=== PATIENT | male | born 1965 | race African-American/Black ===

== ENCOUNTER 2020-11-30 10:02 | Inpatient (IN) | payer OTHER ==
[2020-11-30 11:30] VITALS: BMI 20.9
[2020-11-30] MEDS ORDERED: MAG HYDROX/AL HYDROX/SIMETH 30 ML UNIT-DOSE CUP PO PRN (12:43)
[2020-11-30] MEDS ORDERED: IBUPROFEN 400 MG TABLET (FP) PO PRN (12:43)
[2020-11-30] MEDS ORDERED: LOPERAMIDE HCL 2 MG CAPSULE PO PRN (12:43)
[2020-11-30] MEDS ORDERED: P-EPHED 60MG/TRIPROLIDI 2.5MG TABLET PO PRN (12:43)
[2020-11-30] MEDS ORDERED: MAGNESIUM CITRATE 300 ML BOTTLE PO PRN (12:43)
[2020-11-30] MEDS ORDERED: ACETAMINOPHEN 325 MG TABLET (FP) PO PRN (12:43)
[2020-11-30] MEDS ORDERED: guaiFENesin 200 MG/10 ML 10 ML UNIT-DOSE CUPS PO PRN (12:43)
[2020-11-30] MEDS ORDERED: NICOTINE POLACRILEX 2 MG GUM BC PRN (12:43)
[2020-11-30] MEDS ORDERED: MAGNESIUM HYDROX 2400MG/30ML ORAL SUSPENSION 30 ML CUP PO PRN (12:43)
[2020-11-30] MEDS: hydrOXYzine PAMOATE 25 MG CAPSULE (FP) PO SCH ×3 (13:52→21:19)
[2020-11-30] MEDS: PRENATAL VITAMINS W/ FOLIC ACID TABLET (FP) PO SCH (13:52)
[2020-11-30] MEDS: amLODIPine BESYLATE 10 MG TABLET (FP) PO SCH (13:52)
[2020-11-30] MEDS: NICOTINE 7 MG/24 HOURS TOPICAL PATCH TD SCH (13:55)
[2020-11-30] MEDS ORDERED: FLUoxetine HCL 20 MG CAPSULE PO ONE (14:26)
[2020-11-30] MEDS: metFORMIN HCL 500 MG TABLET (FP) PO SCH (17:02)
[2020-11-30 17:17] LABS: HEMATOCRIT 45.2 % (35.4-49); HEMOGLOBIN 15.2 GM/dL (11.7-16.9); MCH 29.6 pg (25.7-33.7); MCHC 33.8 g/dl (32.0-35.9); MEAN CELL VOLUME 87.6 fl (80-96); MEAN PLT VOLUME 8.3 fl (7.5-11.1); PLATELET COUNT 349 K/MM3 (134-434); RBC 5.15 M/mm3 (4.00-5.60); RDW 13.1 % (11.9-15.9); WHITE BLOOD COUNT 7.8 K/mm3 (4.0-10.0)
[2020-11-30 17:27] LABS: ALBUMIN 3.6 g/dl (3.4-5.0); BLOOD UREA NITROGEN 8.1 mg/dL (7-18)
[2020-11-30 17:29] LABS: BILIRUBIN,TOTAL 0.8 mg/dL (0.2-1)
[2020-11-30 17:30] LABS: CREATININE 0.8 mg/dL (0.55-1.3)
[2020-11-30 17:31] LABS: TOT PROT 7.7 g/dl (6.4-8.2)
[2020-11-30] MEDS: THIAMINE HCL 100 MG TABLET (FP) PO SCH (21:17)
[2020-11-30] MEDS: OLANZapine 10 MG TABLET PO SCH (21:18)
[2020-11-30] MEDS ORDERED: MELATONIN 5 MG TABLETS PO SCH (22:00)
[2020-12-01] MEDS: metFORMIN HCL 500 MG TABLET (FP) PO SCH ×2 (07:20→17:38)
[2020-12-01] MEDS: hydrOXYzine PAMOATE 25 MG CAPSULE (FP) PO SCH ×5 (07:20→21:39)
[2020-12-01] MEDS: NICOTINE 7 MG/24 HOURS TOPICAL PATCH TD SCH (10:24)
[2020-12-01] MEDS: FLUoxetine HCL 20 MG CAPSULE PO SCH (10:24)
[2020-12-01] MEDS: amLODIPine BESYLATE 10 MG TABLET (FP) PO SCH (10:24)
[2020-12-01] MEDS: PRENATAL VITAMINS W/ FOLIC ACID TABLET (FP) PO SCH (10:24)
[2020-12-01] MEDS ORDERED: MASKS NR ONE (10:36)
[2020-12-01] MEDS: OLANZapine 10 MG TABLET PO SCH (21:39)
[2020-12-01] MEDS: THIAMINE HCL 100 MG TABLET (FP) PO SCH (21:39)
[2020-12-02] MEDS: metFORMIN HCL 500 MG TABLET (FP) PO SCH ×2 (06:14→17:20)
[2020-12-02] MEDS: hydrOXYzine PAMOATE 25 MG CAPSULE (FP) PO SCH ×3 (06:14→13:17)
[2020-12-02] MEDS: PRENATAL VITAMINS W/ FOLIC ACID TABLET (FP) PO SCH (09:40)
[2020-12-02] MEDS: amLODIPine BESYLATE 10 MG TABLET (FP) PO SCH (09:40)
[2020-12-02] MEDS: NICOTINE 7 MG/24 HOURS TOPICAL PATCH TD SCH (09:40)
[2020-12-02] MEDS: FLUoxetine HCL 20 MG CAPSULE PO SCH (09:40)
[2020-12-02] MEDS: hydrOXYzine PAMOATE 25 MG CAPSULE (FP) PO PRN (17:43)
[2020-12-02] MEDS: THIAMINE HCL 100 MG TABLET (FP) PO SCH (21:51)
[2020-12-02] MEDS: OLANZapine 10 MG TABLET PO SCH (21:51)
[2020-12-02] MEDS: SUVOREXANT 10 MG TABLET PO PRN (21:52)
[2020-12-03] MEDS: metFORMIN HCL 500 MG TABLET (FP) PO SCH ×2 (07:32→16:58)
[2020-12-03] MEDS: NICOTINE 7 MG/24 HOURS TOPICAL PATCH TD SCH (09:49)
[2020-12-03] MEDS: PRENATAL VITAMINS W/ FOLIC ACID TABLET (FP) PO SCH (09:49)
[2020-12-03] MEDS: amLODIPine BESYLATE 10 MG TABLET (FP) PO SCH (09:49)
[2020-12-03] MEDS: FLUoxetine HCL 20 MG CAPSULE PO SCH (09:50)
[2020-12-03 10:19] LABS: EPI CELLS 34 /uL (0-25.1); HYALINE CASTS 0 /uL (0-3.1); PH,URINE 8.5 (5.0-8.0); URINE APPEARANCE CLEAR; URINE BACTERIA 413 /uL (0-1359); URINE BILIRUBIN NEGATIVE (NEGATIVE); URINE COLOR YELLOW; URINE GLUCOSE (UA) NEGATIVE (NEGATIVE); URINE KETONE NEGATIVE (NEGATIVE); URINE LEUK ESTERASE 1+ (NEGATIVE); URINE NITRITE NEGATIVE (NEGATIVE); URINE PROTEIN NEGATIVE (NEGATIVE); URINE RBC 4 /uL (0-23.9); URINE UROBILINOGEN 0.2 mg/dL (0.2-1.0); URINE WBC 64 /uL (0-25.8)
[2020-12-03] MEDS: hydrOXYzine PAMOATE 25 MG CAPSULE (FP) PO PRN (17:53)
[2020-12-03] MEDS: THIAMINE HCL 100 MG TABLET (FP) PO SCH (21:14)
[2020-12-03] MEDS: OLANZapine 10 MG TABLET PO SCH (21:15)
[2020-12-03] MEDS: SUVOREXANT 10 MG TABLET PO PRN (21:16)
[2020-12-04 06:06] LABS: SARS-CoV-2 NAA Not Detected (Not Detected)
[2020-12-04] MEDS: metFORMIN HCL 500 MG TABLET (FP) PO SCH (06:35)
[2020-12-04 06:47] VITALS: TEMP 97.1
[2020-12-04] MEDS: amLODIPine BESYLATE 10 MG TABLET (FP) PO SCH (09:09)
[2020-12-04] MEDS: NICOTINE 7 MG/24 HOURS TOPICAL PATCH TD SCH (09:09)
[2020-12-04] MEDS: PRENATAL VITAMINS W/ FOLIC ACID TABLET (FP) PO SCH (09:09)
[2020-12-04] MEDS: FLUoxetine HCL 20 MG CAPSULE PO SCH (09:10)
[2020-12-04 09:37] VITALS: BP 131/88; PULSE 107
== END 2020-12-04 12:32 | disposition home or self-care (01) | DRG 772 ==
LOC: YASAS 10:02 → Y3E 12:28
PROVIDERS: ADMIT Allergy & Immunology; ATTEND Allergy & Immunology
PROC: HZ42ZZZ Group Counseling for Substance Abuse Treatment, Cognitive-Behavioral (ICD-10-PCS; principal; 2020-11-30)
DX: F14.20 Cocaine dependence, uncomplicated (principal); F16.20 Hallucinogen dependence, uncomplicated; F17.210 Nicotine dependence, cigarettes, uncomplicated; F31.9 Bipolar disorder, unspecified; F25.9 Schizoaffective disorder, unspecified; F19.282 Other psychoactive substance dependence with psychoactive substance-induced sleep disorder; I10 Essential (primary) hypertension; E11.9 Type 2 diabetes mellitus without complications; Z79.84 Long term (current) use of oral hypoglycemic drugs; M16.12 Unilateral primary osteoarthritis, left hip; Z96.641 Presence of right artificial hip joint; Z99.89 Dependence on other enabling machines and devices
CPT/HCPCS: 36415; 80053; 81003; 82962; 85027; 86780; C9803; U0003; U0005

== ENCOUNTER 2021-11-05 13:10 | Inpatient (IN) | payer OTHER ==
[2021-11-05] MEDS ORDERED: ONDANSETRON *ODT* 4 MG TABLET SL PRN (15:46)
[2021-11-05] MEDS ORDERED: MAG HYDROX/AL HYDROX/SIMETH 30 ML UNIT-DOSE CUP PO PRN (15:46)
[2021-11-05] MEDS ORDERED: NICOTINE 10 MG CARTRIDGE (INHALER) IH PRN (15:46)
[2021-11-05] MEDS ORDERED: LOPERAMIDE HCL 2 MG CAPSULE PO PRN (15:46)
[2021-11-05] MEDS ORDERED: IBUPROFEN 400 MG TABLET (FP) PO PRN (15:46)
[2021-11-05] MEDS ORDERED: BISMUTH SUBSALICYLATE 524 MG/30 ML PO PRN (15:46)
[2021-11-05] MEDS ORDERED: ACETAMINOPHEN 325 MG TABLET (FP) PO PRN ×2 (15:46)
[2021-11-05] MEDS ORDERED: DICYCLOMINE HCL 10 MG CAPSULE PO PRN (15:46)
[2021-11-05] MEDS ORDERED: METHOCARBAMOL 500 MG TABLET PO PRN (15:46)
[2021-11-05] MEDS ORDERED: MAGNESIUM HYDROX 2400MG/30ML ORAL SUSPENSION 30 ML CUP PO PRN (15:46)
[2021-11-05] MEDS ORDERED: MENTHOL/PHENOL 1 EACH UD MM PRN (15:46)
[2021-11-05] MEDS ORDERED: MAGNESIUM CITRATE 300 ML BOTTLE PO PRN (15:46)
[2021-11-05 17:26] VITALS: BMI 21.1
[2021-11-05] MEDS: PRENATAL VITAMINS W/ FOLIC ACID TABLET (FP) PO SCH (18:49)
[2021-11-05] MEDS: hydrOXYzine PAMOATE 25 MG CAPSULE (FP) PO SCH ×2 (18:49→23:04)
[2021-11-05] MEDS: THIAMINE HCL 100 MG TABLET (FP) PO SCH (23:04)
[2021-11-05] MEDS: MELATONIN 5 MG TABLETS PO SCH (23:04)
[2021-11-06] MEDS: hydrOXYzine PAMOATE 25 MG CAPSULE (FP) PO SCH ×5 (05:22→22:25)
[2021-11-06] MEDS: PRENATAL VITAMINS W/ FOLIC ACID TABLET (FP) PO SCH (10:56)
[2021-11-06] MEDS ORDERED: OLANZapine 5 MG TABLET PO SCH (22:00)
[2021-11-06] MEDS: MELATONIN 5 MG TABLETS PO SCH (22:24)
[2021-11-06] MEDS: THIAMINE HCL 100 MG TABLET (FP) PO SCH (22:25)
[2021-11-07] MEDS: hydrOXYzine PAMOATE 25 MG CAPSULE (FP) PO SCH ×2 (06:05→10:14)
[2021-11-07 09:53] VITALS: BP 144/96; PULSE 93; TEMP 98.1
[2021-11-07] MEDS ORDERED: FLUoxetine HCL 20 MG CAPSULE PO SCH (10:00)
[2021-11-07] MEDS: PRENATAL VITAMINS W/ FOLIC ACID TABLET (FP) PO SCH (10:14)
[2021-11-08 00:06] LABS: SARS-CoV-2 NAA Not Detected (Not Detected)
== END 2021-11-07 11:34 | DRG 774 ==
LOC: YASAS 13:10 → Y6N 17:17 → UNDOADMIN 17:17 → UNDODISIN 11-07 11:34
PROVIDERS: ADMIT Allergy & Immunology; ATTEND Allergy & Immunology
PROC: HZ2ZZZZ Detoxification Services for Substance Abuse Treatment (ICD-10-PCS; principal; 2021-11-05)
DX: F10.230 Alcohol dependence with withdrawal, uncomplicated (principal); F14.20 Cocaine dependence, uncomplicated; F16.20 Hallucinogen dependence, uncomplicated; F17.213 Nicotine dependence, cigarettes, with withdrawal; F25.9 Schizoaffective disorder, unspecified; F19.282 Other psychoactive substance dependence with psychoactive substance-induced sleep disorder; I10 Essential (primary) hypertension; E11.9 Type 2 diabetes mellitus without complications; Z79.84 Long term (current) use of oral hypoglycemic drugs; Z96.643 Presence of artificial hip joint, bilateral; Z99.89 Dependence on other enabling machines and devices
CPT/HCPCS: 82962; C9803-CS; U0003; U0005

== ENCOUNTER 2021-11-07 08:50 | Inpatient (IN) | payer OTHER ==
[2021-11-07] MEDS ORDERED: LOPERAMIDE HCL 2 MG CAPSULE PO PRN (11:31)
[2021-11-07] MEDS ORDERED: MAGNESIUM CITRATE 300 ML BOTTLE PO PRN (11:31)
[2021-11-07] MEDS ORDERED: NICOTINE 10 MG CARTRIDGE (INHALER) IH PRN (11:31)
[2021-11-07] MEDS ORDERED: P-EPHED 60MG/TRIPROLIDI 2.5MG TABLET PO PRN (11:31)
[2021-11-07] MEDS ORDERED: MAGNESIUM HYDROX 2400MG/30ML ORAL SUSPENSION 30 ML CUP PO PRN (11:31)
[2021-11-07] MEDS ORDERED: NICOTINE POLACRILEX 2 MG GUM BUC PRN (11:31)
[2021-11-07] MEDS ORDERED: MAG HYDROX/AL HYDROX/SIMETH 30 ML UNIT-DOSE CUP PO PRN (11:31)
[2021-11-07] MEDS ORDERED: guaiFENesin 200 MG/10 ML 10 ML UNIT-DOSE CUPS PO PRN (11:31)
[2021-11-07] MEDS ORDERED: amLODIPine BESYLATE 10 MG TABLET (FP) PO SCH (12:12)
[2021-11-07] MEDS: amLODIPine BESYLATE 10 MG TABLET (FP) PO SCH (12:42)
[2021-11-07] MEDS ORDERED: metFORMIN HCL 500 MG TABLET (FP) PO SCH (16:30)
[2021-11-07] MEDS: OLANZapine 10 MG TABLET PO SCH (22:37)
[2021-11-07] MEDS: MELATONIN 5 MG TABLETS PO SCH (22:37)
[2021-11-07] MEDS: THIAMINE HCL 100 MG TABLET (FP) PO SCH (22:37)
[2021-11-08] MEDS ORDERED: amLODIPine BESYLATE 10 MG TABLET (FP) PO SCH (10:00)
[2021-11-08] MEDS: FLUoxetine HCL 20 MG CAPSULE PO SCH (11:01)
[2021-11-08] MEDS: amLODIPine BESYLATE 10 MG TABLET (FP) PO SCH (11:01)
[2021-11-08] MEDS: PRENATAL VITAMINS W/ FOLIC ACID TABLET (FP) PO SCH (11:02)
[2021-11-08 14:37] LABS: HEMOGLOBIN 13.9 GM/dL (11.7-16.9); MCH 29.5 pg (25.7-33.7); MCHC 33.9 g/dl (32.0-35.9); MEAN CELL VOLUME 87.1 fl (80-96); MEAN PLT VOLUME 7.5 fl (7.5-11.1); PLATELET COUNT 277 10^3/uL (134-434); WHITE BLOOD COUNT 4.1 K/mm3 (4.0-10.0)
[2021-11-08 15:01] LABS: ALBUMIN 3.5 g/dl (3.4-5.0); BLOOD UREA NITROGEN 9.1 mg/dL (7-18); CALCIUM 9.2 mg/dL (8.5-10.1)
[2021-11-08 15:05] LABS: BILIRUBIN,TOTAL 0.8 mg/dL (0.2-1); CREATININE 0.9 mg/dL (0.55-1.3)
[2021-11-08 15:06] LABS: TOT PROT 6.8 g/dl (6.4-8.2)
[2021-11-08 15:20] LABS: SYPHILIS W/ RPR CONF NON-REACTIVE (NONREACTIVE)
[2021-11-08 15:49] LABS: HIV INTERPRETATION NEGATIVE (NEGATIVE)
[2021-11-08] MEDS: OLANZapine 10 MG TABLET PO SCH (21:13)
[2021-11-08] MEDS: THIAMINE HCL 100 MG TABLET (FP) PO SCH (21:13)
[2021-11-08] MEDS: MELATONIN 5 MG TABLETS PO SCH (21:13)
[2021-11-09] MEDS: PRENATAL VITAMINS W/ FOLIC ACID TABLET (FP) PO SCH (10:27)
[2021-11-09] MEDS: FLUoxetine HCL 20 MG CAPSULE PO SCH (10:27)
[2021-11-09] MEDS: amLODIPine BESYLATE 10 MG TABLET (FP) PO SCH (10:27)
[2021-11-09] MEDS: MELATONIN 5 MG TABLETS PO SCH (23:23)
[2021-11-09] MEDS: OLANZapine 10 MG TABLET PO SCH (23:23)
[2021-11-09] MEDS: THIAMINE HCL 100 MG TABLET (FP) PO SCH (23:23)
[2021-11-10] MEDS: PRENATAL VITAMINS W/ FOLIC ACID TABLET (FP) PO SCH (10:10)
[2021-11-10] MEDS: amLODIPine BESYLATE 10 MG TABLET (FP) PO SCH (10:10)
[2021-11-10] MEDS: FLUoxetine HCL 20 MG CAPSULE PO SCH (10:10)
[2021-11-10] MEDS: COLLOIDAL OATMEAL 1 BAR EACH TP PRN (11:50)
[2021-11-10] MEDS: IBUPROFEN 400 MG TABLET (FP) PO PRN (18:11)
[2021-11-10] MEDS: THIAMINE HCL 100 MG TABLET (FP) PO SCH (21:04)
[2021-11-10] MEDS: OLANZapine 10 MG TABLET PO SCH (21:04)
[2021-11-10] MEDS: MELATONIN 5 MG TABLETS PO SCH (21:04)
[2021-11-11 00:09] LABS: SARS-CoV-2 NAA Not Detected (Not Detected)
[2021-11-11] MEDS: FLUoxetine HCL 20 MG CAPSULE PO SCH (10:01)
[2021-11-11] MEDS: amLODIPine BESYLATE 10 MG TABLET (FP) PO SCH (10:01)
[2021-11-11] MEDS: hydrOXYzine PAMOATE 25 MG CAPSULE (FP) PO PRN (10:01)
[2021-11-11] MEDS: PRENATAL VITAMINS W/ FOLIC ACID TABLET (FP) PO SCH (10:02)
[2021-11-11] MEDS: MELATONIN 5 MG TABLETS PO SCH (21:18)
[2021-11-11] MEDS: OLANZapine 10 MG TABLET PO SCH (21:18)
[2021-11-11] MEDS: THIAMINE HCL 100 MG TABLET (FP) PO SCH (21:18)
[2021-11-12] MEDS: amLODIPine BESYLATE 10 MG TABLET (FP) PO SCH (10:45)
[2021-11-12] MEDS: FLUoxetine HCL 20 MG CAPSULE PO SCH (10:45)
[2021-11-12] MEDS: PRENATAL VITAMINS W/ FOLIC ACID TABLET (FP) PO SCH (10:45)
[2021-11-12] MEDS: THIAMINE HCL 100 MG TABLET (FP) PO SCH (21:09)
[2021-11-12] MEDS: OLANZapine 10 MG TABLET PO SCH (21:09)
[2021-11-12] MEDS: MELATONIN 5 MG TABLETS PO SCH (21:09)
[2021-11-12] MEDS: ACETAMINOPHEN 325 MG TABLET (FP) PO PRN (21:17)
[2021-11-13] MEDS: amLODIPine BESYLATE 10 MG TABLET (FP) PO SCH (10:15)
[2021-11-13] MEDS: FLUoxetine HCL 20 MG CAPSULE PO SCH (10:15)
[2021-11-13] MEDS: PRENATAL VITAMINS W/ FOLIC ACID TABLET (FP) PO SCH (10:16)
[2021-11-13] MEDS: THIAMINE HCL 100 MG TABLET (FP) PO SCH (21:45)
[2021-11-13] MEDS: MELATONIN 5 MG TABLETS PO SCH (21:47)
[2021-11-13] MEDS: OLANZapine 10 MG TABLET PO SCH (21:47)
[2021-11-13] MEDS: ACETAMINOPHEN 325 MG TABLET (FP) PO PRN (21:48)
[2021-11-14] MEDS: amLODIPine BESYLATE 10 MG TABLET (FP) PO SCH (09:54)
[2021-11-14] MEDS: PRENATAL VITAMINS W/ FOLIC ACID TABLET (FP) PO SCH (09:54)
[2021-11-14] MEDS: FLUoxetine HCL 20 MG CAPSULE PO SCH (09:54)
[2021-11-14] MEDS: hydrOXYzine PAMOATE 25 MG CAPSULE (FP) PO PRN (09:55)
[2021-11-14] MEDS: THIAMINE HCL 100 MG TABLET (FP) PO SCH (21:10)
[2021-11-14] MEDS: MELATONIN 5 MG TABLETS PO SCH (21:10)
[2021-11-14] MEDS: OLANZapine 10 MG TABLET PO SCH (21:10)
[2021-11-15] MEDS: amLODIPine BESYLATE 10 MG TABLET (FP) PO SCH (12:20)
[2021-11-15] MEDS: PRENATAL VITAMINS W/ FOLIC ACID TABLET (FP) PO SCH (12:20)
[2021-11-15] MEDS: FLUoxetine HCL 20 MG CAPSULE PO SCH (12:20)
[2021-11-15] MEDS: MELATONIN 5 MG TABLETS PO SCH (21:12)
[2021-11-15] MEDS: THIAMINE HCL 100 MG TABLET (FP) PO SCH (21:12)
[2021-11-15] MEDS: OLANZapine 10 MG TABLET PO SCH (21:13)
[2021-11-16] MEDS: PRENATAL VITAMINS W/ FOLIC ACID TABLET (FP) PO SCH (10:12)
[2021-11-16] MEDS: FLUoxetine HCL 20 MG CAPSULE PO SCH (10:12)
[2021-11-16] MEDS: amLODIPine BESYLATE 10 MG TABLET (FP) PO SCH (10:12)
[2021-11-16] MEDS: OLANZapine 10 MG TABLET PO SCH (21:21)
[2021-11-16] MEDS: THIAMINE HCL 100 MG TABLET (FP) PO SCH (21:21)
[2021-11-16] MEDS: MELATONIN 5 MG TABLETS PO SCH (21:21)
[2021-11-17] MEDS: PRENATAL VITAMINS W/ FOLIC ACID TABLET (FP) PO SCH (09:58)
[2021-11-17] MEDS: amLODIPine BESYLATE 10 MG TABLET (FP) PO SCH (09:58)
[2021-11-17] MEDS: FLUoxetine HCL 20 MG CAPSULE PO SCH (09:58)
[2021-11-17] MEDS: OLANZapine 10 MG TABLET PO SCH (21:09)
[2021-11-17] MEDS: THIAMINE HCL 100 MG TABLET (FP) PO SCH (21:09)
[2021-11-17] MEDS: MELATONIN 5 MG TABLETS PO SCH (21:09)
[2021-11-18] MEDS: amLODIPine BESYLATE 10 MG TABLET (FP) PO SCH (10:23)
[2021-11-18] MEDS: FLUoxetine HCL 20 MG CAPSULE PO SCH (10:23)
[2021-11-18] MEDS: PRENATAL VITAMINS W/ FOLIC ACID TABLET (FP) PO SCH (10:23)
[2021-11-18] MEDS: OLANZapine 10 MG TABLET PO SCH (21:32)
[2021-11-18] MEDS: THIAMINE HCL 100 MG TABLET (FP) PO SCH (21:32)
[2021-11-18] MEDS: MELATONIN 5 MG TABLETS PO SCH (21:32)
[2021-11-19] MEDS: PRENATAL VITAMINS W/ FOLIC ACID TABLET (FP) PO SCH (09:42)
[2021-11-19] MEDS: FLUoxetine HCL 20 MG CAPSULE PO SCH (09:43)
[2021-11-19] MEDS: amLODIPine BESYLATE 10 MG TABLET (FP) PO SCH (09:43)
[2021-11-19] MEDS: OLANZapine 10 MG TABLET PO SCH (21:06)
[2021-11-19] MEDS: MELATONIN 5 MG TABLETS PO SCH (21:06)
[2021-11-19] MEDS: THIAMINE HCL 100 MG TABLET (FP) PO SCH (21:06)
[2021-11-19] MEDS: IBUPROFEN 400 MG TABLET (FP) PO PRN (21:08)
[2021-11-20] MEDS: FLUoxetine HCL 20 MG CAPSULE PO SCH (10:40)
[2021-11-20] MEDS: PRENATAL VITAMINS W/ FOLIC ACID TABLET (FP) PO SCH (10:40)
[2021-11-20] MEDS: amLODIPine BESYLATE 10 MG TABLET (FP) PO SCH (10:41)
[2021-11-20] MEDS: COLLOIDAL OATMEAL 1 BAR EACH TP PRN (18:29)
[2021-11-20] MEDS: MELATONIN 5 MG TABLETS PO SCH (21:27)
[2021-11-20] MEDS: OLANZapine 10 MG TABLET PO SCH (21:28)
[2021-11-20] MEDS: THIAMINE HCL 100 MG TABLET (FP) PO SCH (21:28)
[2021-11-21] MEDS: FLUoxetine HCL 20 MG CAPSULE PO SCH (09:31)
[2021-11-21] MEDS: PRENATAL VITAMINS W/ FOLIC ACID TABLET (FP) PO SCH (09:31)
[2021-11-21] MEDS: amLODIPine BESYLATE 10 MG TABLET (FP) PO SCH (09:32)
[2021-11-21] MEDS: OLANZapine 10 MG TABLET PO SCH (21:06)
[2021-11-21] MEDS: THIAMINE HCL 100 MG TABLET (FP) PO SCH (21:06)
[2021-11-21] MEDS: MELATONIN 5 MG TABLETS PO SCH (21:06)
[2021-11-21] MEDS: IBUPROFEN 400 MG TABLET (FP) PO PRN (21:07)
[2021-11-22] MEDS: FLUoxetine HCL 20 MG CAPSULE PO SCH (10:36)
[2021-11-22] MEDS: amLODIPine BESYLATE 10 MG TABLET (FP) PO SCH (10:36)
[2021-11-22] MEDS: PRENATAL VITAMINS W/ FOLIC ACID TABLET (FP) PO SCH (10:37)
[2021-11-22] MEDS: IBUPROFEN 400 MG TABLET (FP) PO PRN (18:40)
[2021-11-22] MEDS: OLANZapine 10 MG TABLET PO SCH (21:17)
[2021-11-22] MEDS: MELATONIN 5 MG TABLETS PO SCH (21:17)
[2021-11-22] MEDS: THIAMINE HCL 100 MG TABLET (FP) PO SCH (21:17)
[2021-11-23] MEDS: ACETAMINOPHEN 325 MG TABLET (FP) PO PRN (08:53)
[2021-11-23] MEDS: hydrOXYzine PAMOATE 25 MG CAPSULE (FP) PO PRN ×2 (08:54→09:12)
[2021-11-23] MEDS: PRENATAL VITAMINS W/ FOLIC ACID TABLET (FP) PO SCH (09:12)
[2021-11-23] MEDS: FLUoxetine HCL 20 MG CAPSULE PO SCH (09:12)
[2021-11-23] MEDS: amLODIPine BESYLATE 10 MG TABLET (FP) PO SCH (09:12)
[2021-11-23] MEDS: IBUPROFEN 400 MG TABLET (FP) PO PRN (18:41)
[2021-11-23] MEDS: OLANZapine 10 MG TABLET PO SCH (21:36)
[2021-11-23] MEDS: THIAMINE HCL 100 MG TABLET (FP) PO SCH (21:36)
[2021-11-23] MEDS: MELATONIN 5 MG TABLETS PO SCH (21:36)
[2021-11-24] MEDS: IBUPROFEN 400 MG TABLET (FP) PO PRN (07:32)
[2021-11-24] MEDS: PRENATAL VITAMINS W/ FOLIC ACID TABLET (FP) PO SCH (10:27)
[2021-11-24] MEDS: amLODIPine BESYLATE 10 MG TABLET (FP) PO SCH (10:27)
[2021-11-24] MEDS: FLUoxetine HCL 20 MG CAPSULE PO SCH (10:27)
[2021-11-24] MEDS: THIAMINE HCL 100 MG TABLET (FP) PO SCH (21:10)
[2021-11-24] MEDS: OLANZapine 10 MG TABLET PO SCH (21:10)
[2021-11-24] MEDS: MELATONIN 5 MG TABLETS PO SCH (21:10)
[2021-11-24] MEDS: hydrOXYzine PAMOATE 25 MG CAPSULE (FP) PO PRN (21:50)
[2021-11-25] MEDS: IBUPROFEN 400 MG TABLET (FP) PO PRN ×2 (08:47→21:33)
[2021-11-25] MEDS: FLUoxetine HCL 20 MG CAPSULE PO SCH (09:50)
[2021-11-25] MEDS: PRENATAL VITAMINS W/ FOLIC ACID TABLET (FP) PO SCH (09:50)
[2021-11-25] MEDS: amLODIPine BESYLATE 10 MG TABLET (FP) PO SCH (09:50)
[2021-11-25] MEDS: OLANZapine 10 MG TABLET PO SCH (21:32)
[2021-11-25] MEDS: MELATONIN 5 MG TABLETS PO SCH (21:33)
[2021-11-25] MEDS: THIAMINE HCL 100 MG TABLET (FP) PO SCH (21:33)
[2021-11-25] MEDS: hydrOXYzine PAMOATE 25 MG CAPSULE (FP) PO PRN (21:33)
[2021-11-26] MEDS: amLODIPine BESYLATE 10 MG TABLET (FP) PO SCH (09:01)
[2021-11-26] MEDS: PRENATAL VITAMINS W/ FOLIC ACID TABLET (FP) PO SCH (09:01)
[2021-11-26] MEDS: FLUoxetine HCL 20 MG CAPSULE PO SCH (09:01)
[2021-11-26] MEDS: IBUPROFEN 400 MG TABLET (FP) PO PRN (09:03)
[2021-11-26] MEDS: MELATONIN 5 MG TABLETS PO SCH (21:50)
[2021-11-26] MEDS: OLANZapine 10 MG TABLET PO SCH (21:51)
[2021-11-26] MEDS: THIAMINE HCL 100 MG TABLET (FP) PO SCH (21:51)
[2021-11-27] MEDS: PRENATAL VITAMINS W/ FOLIC ACID TABLET (FP) PO SCH (10:32)
[2021-11-27] MEDS: FLUoxetine HCL 20 MG CAPSULE PO SCH (10:32)
[2021-11-27] MEDS: amLODIPine BESYLATE 10 MG TABLET (FP) PO SCH (10:32)
[2021-11-27] MEDS: THIAMINE HCL 100 MG TABLET (FP) PO SCH (21:11)
[2021-11-27] MEDS: hydrOXYzine PAMOATE 25 MG CAPSULE (FP) PO PRN (21:11)
[2021-11-27] MEDS: MELATONIN 5 MG TABLETS PO SCH (21:11)
[2021-11-27] MEDS: OLANZapine 10 MG TABLET PO SCH (21:12)
[2021-11-28] MEDS: amLODIPine BESYLATE 10 MG TABLET (FP) PO SCH (10:15)
[2021-11-28] MEDS: PRENATAL VITAMINS W/ FOLIC ACID TABLET (FP) PO SCH (10:15)
[2021-11-28] MEDS: FLUoxetine HCL 20 MG CAPSULE PO SCH (10:15)
[2021-11-28] MEDS: OLANZapine 10 MG TABLET PO SCH (21:23)
[2021-11-28] MEDS: MELATONIN 5 MG TABLETS PO SCH (21:24)
[2021-11-28] MEDS: ACETAMINOPHEN 325 MG TABLET (FP) PO PRN (21:24)
[2021-11-28] MEDS: THIAMINE HCL 100 MG TABLET (FP) PO SCH (21:24)
[2021-11-29] MEDS: FLUoxetine HCL 20 MG CAPSULE PO SCH (10:35)
[2021-11-29] MEDS: PRENATAL VITAMINS W/ FOLIC ACID TABLET (FP) PO SCH (10:35)
[2021-11-29] MEDS: amLODIPine BESYLATE 10 MG TABLET (FP) PO SCH (10:35)
[2021-11-29] MEDS: MELATONIN 5 MG TABLETS PO SCH (21:09)
[2021-11-29] MEDS: OLANZapine 10 MG TABLET PO SCH (21:09)
[2021-11-29] MEDS: IBUPROFEN 400 MG TABLET (FP) PO PRN (21:09)
[2021-11-29] MEDS: THIAMINE HCL 100 MG TABLET (FP) PO SCH (21:09)
[2021-11-29] MEDS: hydrOXYzine PAMOATE 25 MG CAPSULE (FP) PO PRN (21:09)
[2021-11-30] MEDS: PRENATAL VITAMINS W/ FOLIC ACID TABLET (FP) PO SCH (10:23)
[2021-11-30] MEDS: amLODIPine BESYLATE 10 MG TABLET (FP) PO SCH (10:23)
[2021-11-30] MEDS: FLUoxetine HCL 20 MG CAPSULE PO SCH (10:23)
[2021-11-30] MEDS: MELATONIN 5 MG TABLETS PO SCH (21:24)
[2021-11-30] MEDS: THIAMINE HCL 100 MG TABLET (FP) PO SCH (21:24)
[2021-11-30] MEDS: OLANZapine 10 MG TABLET PO SCH (21:24)
[2021-11-30] MEDS: IBUPROFEN 400 MG TABLET (FP) PO PRN (21:24)
[2021-12-01] MEDS: amLODIPine BESYLATE 10 MG TABLET (FP) PO SCH (10:51)
[2021-12-01] MEDS: PRENATAL VITAMINS W/ FOLIC ACID TABLET (FP) PO SCH (10:51)
[2021-12-01] MEDS: FLUoxetine HCL 20 MG CAPSULE PO SCH (10:51)
[2021-12-01] MEDS: THIAMINE HCL 100 MG TABLET (FP) PO SCH (23:07)
[2021-12-01] MEDS: MELATONIN 5 MG TABLETS PO SCH (23:07)
[2021-12-01] MEDS: OLANZapine 10 MG TABLET PO SCH (23:07)
[2021-12-02] MEDS: FLUoxetine HCL 20 MG CAPSULE PO SCH (10:05)
[2021-12-02] MEDS: amLODIPine BESYLATE 10 MG TABLET (FP) PO SCH (10:05)
[2021-12-02] MEDS: PRENATAL VITAMINS W/ FOLIC ACID TABLET (FP) PO SCH (10:05)
[2021-12-02] MEDS: MELATONIN 5 MG TABLETS PO SCH (21:40)
[2021-12-02] MEDS: THIAMINE HCL 100 MG TABLET (FP) PO SCH (21:40)
[2021-12-02] MEDS: hydrOXYzine PAMOATE 25 MG CAPSULE (FP) PO PRN (21:40)
[2021-12-02] MEDS: IBUPROFEN 400 MG TABLET (FP) PO PRN (21:41)
[2021-12-02] MEDS: OLANZapine 10 MG TABLET PO SCH (21:42)
[2021-12-03] MEDS: COLLOIDAL OATMEAL 1 BAR EACH TP PRN (07:42)
[2021-12-03] MEDS: amLODIPine BESYLATE 10 MG TABLET (FP) PO SCH (09:04)
[2021-12-03] MEDS: FLUoxetine HCL 20 MG CAPSULE PO SCH (09:04)
[2021-12-03] MEDS: PRENATAL VITAMINS W/ FOLIC ACID TABLET (FP) PO SCH (09:04)
[2021-12-03] MEDS: IBUPROFEN 400 MG TABLET (FP) PO PRN (09:05)
[2021-12-03 09:35] VITALS: BP 135/70; PULSE 89; TEMP 96.5
== END 2021-12-03 10:36 | disposition home or self-care (01) | DRG 772 ==
LOC: YASAS 08:50 → Y3W 08:51
PROVIDERS: ADMIT Allergy & Immunology; ATTEND Allergy & Immunology
PROC: HZ42ZZZ Group Counseling for Substance Abuse Treatment, Cognitive-Behavioral (ICD-10-PCS; principal; 2021-11-07)
DX: F10.20 Alcohol dependence, uncomplicated (principal); F14.20 Cocaine dependence, uncomplicated; I10 Essential (primary) hypertension; E11.9 Type 2 diabetes mellitus without complications; R26.89 Other abnormalities of gait and mobility; Z96.643 Presence of artificial hip joint, bilateral; M25.462 Effusion, left knee; S82.092A Other fracture of left patella, initial encounter for closed fracture; W22.8XXA Striking against or struck by other objects, initial encounter; Y93.E1 Activity, personal bathing and showering; Y92.231 Patient bathroom in hospital as the place of occurrence of the external cause; Z99.89 Dependence on other enabling machines and devices
CPT/HCPCS: 36415; 73562-TC-LT-FY; 80053; 82962; 85027; 86780; 87389; C9803-CS; U0003; U0005

== ENCOUNTER 2021-11-22 11:46 | Emergency (ER) | payer OTHER ==
[2021-11-22 12:08] VITALS: BP 142/84; PULSE 80; TEMP 98.2; BMI 24.4
== END 2021-11-22 17:30 | disposition home or self-care (01) ==
LOC: JERFT 11:46
DX: S82.002A Unspecified fracture of left patella, initial encounter for closed fracture (principal); W18.2XXA Fall in (into) shower or empty bathtub, initial encounter
CPT/HCPCS: 73562-TC-LT-FY; 73562-TC-RT-FY; 99284-25

== ENCOUNTER 2022-03-16 16:07 | Inpatient (IN) | payer OTHER ==
[2022-03-16 17:38] VITALS: BMI 25.0
[2022-03-16] MEDS ORDERED: MAGNESIUM CITRATE 300 ML BOTTLE PO PRN (19:05)
[2022-03-16] MEDS ORDERED: MAG HYDROX/AL HYDROX/SIMETH 30 ML UNIT-DOSE CUP PO PRN (19:05)
[2022-03-16] MEDS ORDERED: MAGNESIUM HYDROX 2400MG/30ML ORAL SUSPENSION 30 ML CUP PO PRN (19:05)
[2022-03-16] MEDS ORDERED: LOPERAMIDE HCL 2 MG CAPSULE PO PRN (19:05)
[2022-03-16] MEDS ORDERED: DICYCLOMINE HCL 10 MG CAPSULE PO PRN (19:05)
[2022-03-16] MEDS ORDERED: BENZOCAINE/MENTHOL (CHLORASEPTIC ) LOZENGE MM PRN (19:05)
[2022-03-16] MEDS ORDERED: ONDANSETRON *ODT* 4 MG TABLET SL PRN (19:05)
[2022-03-16] MEDS ORDERED: BISMUTH SUBSALICYLATE 524 MG/30 ML PO PRN (19:05)
[2022-03-16] MEDS ORDERED: ACETAMINOPHEN 325 MG TABLET (FP) PO PRN ×2 (19:05)
[2022-03-16] MEDS ORDERED: NICOTINE 10 MG CARTRIDGE (INHALER) IH PRN (19:05)
[2022-03-16] MEDS ORDERED: IBUPROFEN 400 MG TABLET (FP) PO PRN (19:05)
[2022-03-16] MEDS: MELATONIN 5 MG TABLETS PO SCH (23:46)
[2022-03-16] MEDS: LIDOCAINE 5% TOPICAL PATCH TP SCH (23:46)
[2022-03-16] MEDS: LIDOCAINE PATCH REMOVAL MC SCH (23:46)
[2022-03-16] MEDS: THIAMINE HCL 100 MG TABLET (FP) PO SCH (23:47)
[2022-03-17] MEDS: IBUPROFEN 600 MG TABLET (FP) PO PRN (08:53)
[2022-03-17] MEDS ORDERED: chlordiazePOXIDE HCL 25 MG CAPSULE PO PRN (09:46)
[2022-03-17] MEDS: LIDOCAINE 5% TOPICAL PATCH TP SCH (10:10)
[2022-03-17] MEDS: PRENATAL VITAMINS W/ FOLIC ACID TABLET (FP) PO SCH (10:10)
[2022-03-17] MEDS: METHOCARBAMOL 500 MG TABLET PO PRN (10:10)
[2022-03-17] MEDS: amLODIPine BESYLATE 10 MG TABLET (FP) PO SCH (10:12)
[2022-03-17] MEDS: chlordiazePOXIDE HCL 25 MG CAPSULE PO SCH ×3 (10:12→22:23)
[2022-03-17 11:59] LABS: HEMOGLOBIN 13.6 GM/dL (11.7-16.9); MCH 28.6 pg (25.7-33.7); MCHC 33.3 g/dl (32.0-35.9); MEAN PLT VOLUME 7.6 fl (7.5-11.1); PLATELET COUNT 314 10^3/uL (134-434); RBC 4.77 M/mm3 (4.00-5.60); RDW 12.9 % (11.9-15.9); WHITE BLOOD COUNT 5.7 K/mm3 (4.0-10.0)
[2022-03-17] MEDS ORDERED: PNEUMOC 20-VAL CONJ-DIP CRM/PF 0.5 ML SYRINGE IM ONE (12:00)
[2022-03-17 12:15] LABS: ALBUMIN 3.7 g/dl (3.4-5.0); BILIRUBIN,TOTAL 0.9 mg/dL (0.2-1); BLOOD UREA NITROGEN 11.3 mg/dL (7-18); CREATININE 0.8 mg/dL (0.55-1.3); TOT PROT 7.5 g/dl (6.4-8.2)
[2022-03-17 12:17] LABS: CALCIUM 9.2 mg/dL (8.5-10.1)
[2022-03-17] MEDS: THIAMINE HCL 100 MG TABLET (FP) PO SCH (22:22)
[2022-03-17] MEDS: OLANZapine 7.5 MG TABLET PO SCH (22:22)
[2022-03-17] MEDS: LIDOCAINE PATCH REMOVAL MC SCH (23:40)
[2022-03-17] MEDS: MELATONIN 5 MG TABLETS PO SCH (23:40)
[2022-03-18] MEDS: chlordiazePOXIDE HCL 25 MG CAPSULE PO SCH ×3 (06:56→18:20)
[2022-03-18] MEDS: metFORMIN HCL 500 MG TABLET (FP) PO SCH (07:08)
[2022-03-18] MEDS: hydrOXYzine PAMOATE 25 MG CAPSULE (FP) PO PRN (10:14)
[2022-03-18] MEDS: PRENATAL VITAMINS W/ FOLIC ACID TABLET (FP) PO SCH (10:14)
[2022-03-18] MEDS: amLODIPine BESYLATE 10 MG TABLET (FP) PO SCH (10:14)
[2022-03-18] MEDS: LIDOCAINE 5% TOPICAL PATCH TP SCH (10:15)
[2022-03-18] MEDS: IBUPROFEN 600 MG TABLET (FP) PO PRN (19:50)
[2022-03-19] MEDS: chlordiazePOXIDE HCL 25 MG CAPSULE PO SCH ×5 (00:21→22:49)
[2022-03-19] MEDS: THIAMINE HCL 100 MG TABLET (FP) PO SCH ×2 (00:48→22:50)
[2022-03-19] MEDS: MELATONIN 5 MG TABLETS PO SCH ×2 (00:48→22:50)
[2022-03-19] MEDS: LIDOCAINE PATCH REMOVAL MC SCH ×2 (00:48→22:50)
[2022-03-19] MEDS: OLANZapine 7.5 MG TABLET PO SCH ×2 (00:49→22:50)
[2022-03-19] MEDS: metFORMIN HCL 500 MG TABLET (FP) PO SCH (07:08)
[2022-03-19] MEDS: amLODIPine BESYLATE 10 MG TABLET (FP) PO SCH (10:09)
[2022-03-19] MEDS: LIDOCAINE 5% TOPICAL PATCH TP SCH (10:11)
[2022-03-19] MEDS: PRENATAL VITAMINS W/ FOLIC ACID TABLET (FP) PO SCH (10:12)
[2022-03-19] MEDS: METHOCARBAMOL 500 MG TABLET PO PRN (10:12)
[2022-03-20] MEDS ORDERED: chlordiazePOXIDE HCL 10 MG CAPSULE PO PRN
[2022-03-20] MEDS: chlordiazePOXIDE HCL 10 MG CAPSULE PO SCH ×4 (06:48→23:42)
[2022-03-20] MEDS: metFORMIN HCL 500 MG TABLET (FP) PO SCH (08:45)
[2022-03-20] MEDS: PRENATAL VITAMINS W/ FOLIC ACID TABLET (FP) PO SCH (10:22)
[2022-03-20] MEDS: amLODIPine BESYLATE 10 MG TABLET (FP) PO SCH (10:22)
[2022-03-20] MEDS: LIDOCAINE 5% TOPICAL PATCH TP SCH (10:23)
[2022-03-20] MEDS: METHOCARBAMOL 500 MG TABLET PO PRN (17:48)
[2022-03-20] MEDS: OLANZapine 7.5 MG TABLET PO SCH (23:37)
[2022-03-20] MEDS: THIAMINE HCL 100 MG TABLET (FP) PO SCH (23:41)
[2022-03-20] MEDS: MELATONIN 5 MG TABLETS PO SCH (23:41)
[2022-03-20] MEDS: LIDOCAINE PATCH REMOVAL MC SCH (23:42)
[2022-03-21] MEDS: chlordiazePOXIDE HCL 10 MG CAPSULE PO SCH ×2 (06:17→18:07)
[2022-03-21] MEDS: metFORMIN HCL 500 MG TABLET (FP) PO SCH (06:18)
[2022-03-21] MEDS ORDERED: INSULIN (NOVOLOG) ASPART 100 UNITS/ML 10ML VIAL ONE (07:45)
[2022-03-21] MEDS: INSULIN SLIDING SCALE (NOVOLOG) 1 VIAL SQ SCH (07:55)
[2022-03-21] MEDS: amLODIPine BESYLATE 10 MG TABLET (FP) PO SCH (10:17)
[2022-03-21] MEDS: hydrOXYzine PAMOATE 25 MG CAPSULE (FP) PO PRN (10:17)
[2022-03-21] MEDS: PRENATAL VITAMINS W/ FOLIC ACID TABLET (FP) PO SCH (10:17)
[2022-03-21] MEDS: METHOCARBAMOL 500 MG TABLET PO PRN (10:18)
[2022-03-21] MEDS: LIDOCAINE 5% TOPICAL PATCH TP SCH (10:18)
[2022-03-21 17:40] VITALS: RESP 18
[2022-03-22] MEDS: MELATONIN 5 MG TABLETS PO SCH (00:35)
[2022-03-22] MEDS: LIDOCAINE PATCH REMOVAL MC SCH (00:35)
[2022-03-22] MEDS: OLANZapine 7.5 MG TABLET PO SCH (00:36)
[2022-03-22] MEDS: THIAMINE HCL 100 MG TABLET (FP) PO SCH (00:36)
[2022-03-22] MEDS ORDERED: chlordiazePOXIDE HCL 10 MG CAPSULE PO ONE (05:00)
[2022-03-22] MEDS: metFORMIN HCL 500 MG TABLET (FP) PO SCH (06:59)
[2022-03-22] MEDS: INSULIN SLIDING SCALE (NOVOLOG) 1 VIAL SQ SCH (07:07)
[2022-03-22] MEDS ORDERED: INSULIN (NOVOLOG) ASPART 100 UNITS/ML 10ML VIAL ONE (07:56)
[2022-03-22] MEDS: amLODIPine BESYLATE 10 MG TABLET (FP) PO SCH (09:35)
[2022-03-22] MEDS: PRENATAL VITAMINS W/ FOLIC ACID TABLET (FP) PO SCH (09:37)
[2022-03-22 10:13] VITALS: BP 129/92; PULSE 91; TEMP 97.4
[2022-03-22] MEDS: LIDOCAINE 5% TOPICAL PATCH TP SCH (10:33)
== END 2022-03-22 13:40 | disposition other institution (70) | DRG 774 ==
LOC: YASAS 16:07 → UNDOADMIN 19:39 → Y6N 19:39
PROVIDERS: ADMIT Allergy & Immunology; ATTEND Surgery
PROC: HZ2ZZZZ Detoxification Services for Substance Abuse Treatment (ICD-10-PCS; principal; 2022-03-16)
DX: F10.230 Alcohol dependence with withdrawal, uncomplicated (principal); F14.20 Cocaine dependence, uncomplicated; F16.10 Hallucinogen abuse, uncomplicated; F12.20 Cannabis dependence, uncomplicated; F17.210 Nicotine dependence, cigarettes, uncomplicated; F25.9 Schizoaffective disorder, unspecified; F19.24 Other psychoactive substance dependence with psychoactive substance-induced mood disorder; I10 Essential (primary) hypertension; E11.9 Type 2 diabetes mellitus without complications; Z79.84 Long term (current) use of oral hypoglycemic drugs; M17.0 Bilateral primary osteoarthritis of knee; M54.50 Low back pain, unspecified; G89.29 Other chronic pain; Z96.643 Presence of artificial hip joint, bilateral; Z99.89 Dependence on other enabling machines and devices
CPT/HCPCS: 36415; 80053; 82962; 85027; 86780; 87811; 90677; 93005; 93010; C9803-CS; U0003; U0005

== ENCOUNTER 2022-05-09 16:54 | Inpatient (IN) | payer OTHER ==
[2022-05-09 19:09] VITALS: BMI 26.1
[2022-05-09] MEDS ORDERED: IBUPROFEN 600 MG TABLET (FP) PO PRN (19:28)
[2022-05-09] MEDS ORDERED: hydrOXYzine PAMOATE 25 MG CAPSULE (FP) PO PRN (19:28)
[2022-05-09] MEDS ORDERED: IBUPROFEN 400 MG TABLET (FP) PO PRN (19:28)
[2022-05-09] MEDS ORDERED: ONDANSETRON *ODT* 4 MG TABLET SL PRN (19:28)
[2022-05-09] MEDS ORDERED: MELATONIN 5 MG TABLETS PO PRN (19:28)
[2022-05-09] MEDS ORDERED: MAGNESIUM CITRATE 300 ML BOTTLE PO PRN (19:28)
[2022-05-09] MEDS ORDERED: MAGNESIUM HYDROX 2400MG/30ML ORAL SUSPENSION 30 ML CUP PO PRN (19:28)
[2022-05-09] MEDS ORDERED: DICYCLOMINE HCL 10 MG CAPSULE PO PRN (19:28)
[2022-05-09] MEDS ORDERED: BENZOCAINE/MENTHOL (CHLORASEPTIC ) LOZENGE MM PRN (19:28)
[2022-05-09] MEDS ORDERED: METHOCARBAMOL 500 MG TABLET PO PRN (19:28)
[2022-05-09] MEDS ORDERED: ACETAMINOPHEN 325 MG TABLET (FP) PO PRN ×2 (19:28)
[2022-05-09] MEDS ORDERED: P-EPHED 60MG/TRIPROLIDI 2.5MG TABLET PO PRN (19:28)
[2022-05-09] MEDS ORDERED: guaiFENesin 200 MG/10 ML 10 ML UNIT-DOSE CUPS PO PRN (19:28)
[2022-05-09] MEDS ORDERED: BISMUTH SUBSALICYLATE 524 MG/30 ML PO PRN (19:28)
[2022-05-09] MEDS ORDERED: LOPERAMIDE HCL 2 MG CAPSULE PO PRN (19:28)
[2022-05-09] MEDS ORDERED: MAG HYDROX/AL HYDROX/SIMETH 30 ML UNIT-DOSE CUP PO PRN (19:28)
[2022-05-09] MEDS: amLODIPine BESYLATE 10 MG TABLET (FP) PO SCH (20:31)
[2022-05-09] MEDS ORDERED: THIAMINE HCL 100 MG TABLET (FP) PO SCH (22:00)
[2022-05-10] MEDS ORDERED: metFORMIN HCL 500 MG TABLET (FP) PO SCH (07:00)
[2022-05-10] MEDS ORDERED: PRENATAL VITAMINS W/ FOLIC ACID TABLET (FP) PO SCH (10:00)
[2022-05-10] MEDS: amLODIPine BESYLATE 10 MG TABLET (FP) PO SCH (10:18)
[2022-05-10 11:22] LABS: HEMATOCRIT 37.7 % (35.4-49); MCH 29.2 pg (25.7-33.7); MCHC 34.5 g/dl (32.0-35.9); MEAN CELL VOLUME 84.5 fl (80-96); MEAN PLT VOLUME 7.3 fl (7.5-11.1); PLATELET COUNT 318 10^3/uL (134-434); RBC 4.46 M/mm3 (4.00-5.60); RDW 13.6 % (11.9-15.9); WHITE BLOOD COUNT 5.1 K/mm3 (4.0-10.0)
[2022-05-10 11:29] LABS: ALBUMIN 3.5 g/dl (3.4-5.0); BLOOD UREA NITROGEN 9.7 mg/dL (7-18)
[2022-05-10 11:33] LABS: CREATININE 0.7 mg/dL (0.55-1.3)
[2022-05-10 11:35] LABS: TOT PROT 6.8 g/dl (6.4-8.2)
[2022-05-10 11:36] LABS: BILIRUBIN,TOTAL 0.8 mg/dL (0.2-1)
[2022-05-10 12:19] LABS: HIV INTERPRETATION NEGATIVE (NEGATIVE)
[2022-05-10 12:54] VITALS: BP 153/83; PULSE 77; RESP 16; TEMP 97.8
[2022-05-10] MEDS ORDERED: OLANZapine 10 MG TABLET PO SCH (22:00)
[2022-05-11] MEDS ORDERED: FLUoxetine HCL 20 MG CAPSULE PO SCH (10:00)
== END 2022-05-10 14:29 | disposition other institution (70) | DRG 774 ==
LOC: YASAS 16:54 → Y3N 19:33
PROVIDERS: ADMIT Allergy & Immunology; ATTEND Surgery
PROC: HZ2ZZZZ Detoxification Services for Substance Abuse Treatment (ICD-10-PCS; principal; 2022-05-09)
DX: F10.230 Alcohol dependence with withdrawal, uncomplicated (principal); F14.20 Cocaine dependence, uncomplicated; F17.210 Nicotine dependence, cigarettes, uncomplicated; F25.9 Schizoaffective disorder, unspecified; F31.9 Bipolar disorder, unspecified; I10 Essential (primary) hypertension; M54.50 Low back pain, unspecified; G89.29 Other chronic pain; Z96.643 Presence of artificial hip joint, bilateral; E11.9 Type 2 diabetes mellitus without complications; Z79.84 Long term (current) use of oral hypoglycemic drugs
CPT/HCPCS: 36415; 80053; 82962; 85027; 86780; 87389; C9803-CS; U0003; U0005

== ENCOUNTER 2022-05-10 14:36 | Inpatient (IN) | payer OTHER ==
[2022-05-10] MEDS ORDERED: LOPERAMIDE HCL 2 MG CAPSULE PO PRN (16:03)
[2022-05-10] MEDS ORDERED: NICOTINE POLACRILEX 2 MG GUM BC PRN (16:03)
[2022-05-10] MEDS ORDERED: guaiFENesin 200 MG/10 ML 10 ML UNIT-DOSE CUPS PO PRN (16:03)
[2022-05-10] MEDS ORDERED: ACETAMINOPHEN 325 MG TABLET (FP) PO PRN (16:03)
[2022-05-10] MEDS ORDERED: P-EPHED 60MG/TRIPROLIDI 2.5MG TABLET PO PRN (16:03)
[2022-05-10] MEDS ORDERED: MAGNESIUM CITRATE 300 ML BOTTLE PO PRN (16:03)
[2022-05-10] MEDS ORDERED: MAGNESIUM HYDROX 2400MG/30ML ORAL SUSPENSION 30 ML CUP PO PRN (16:03)
[2022-05-10] MEDS ORDERED: NALOXONE (NARCAN) HCL 4 MG/0.1 ML SPRAY NS PRN (16:06)
[2022-05-10] MEDS: INSULIN SLIDING SCALE (NOVOLOG) 1 VIAL SQ SCH (17:08)
[2022-05-10] MEDS: MELATONIN 5 MG TABLETS PO SCH (22:04)
[2022-05-10] MEDS: THIAMINE HCL 100 MG TABLET (FP) PO SCH (22:04)
[2022-05-10] MEDS: hydrOXYzine PAMOATE 25 MG CAPSULE (FP) PO SCH ×2 (22:04→22:05)
[2022-05-11] MEDS: metFORMIN HCL 500 MG TABLET (FP) PO SCH (06:32)
[2022-05-11] MEDS: hydrOXYzine PAMOATE 25 MG CAPSULE (FP) PO SCH ×5 (06:33→21:37)
[2022-05-11] MEDS ORDERED: INSULIN (NOVOLOG) ASPART 100 UNITS/ML 10ML VIAL ONE ×2 (06:38→16:59)
[2022-05-11] MEDS: INSULIN SLIDING SCALE (NOVOLOG) 1 VIAL SQ SCH ×2 (06:42→16:59)
[2022-05-11] MEDS: amLODIPine BESYLATE 10 MG TABLET (FP) PO SCH (09:54)
[2022-05-11] MEDS: NICOTINE 7 MG/24 HOURS TOPICAL PATCH TD SCH (09:55)
[2022-05-11] MEDS: PRENATAL VITAMINS W/ FOLIC ACID TABLET (FP) PO SCH (09:55)
[2022-05-11] MEDS: FLUoxetine HCL 20 MG CAPSULE PO SCH (12:46)
[2022-05-11 16:46] LABS: EPI CELLS 24 /uL (0-25.1); HYALINE CASTS 3 /uL (0-3.1); URINE APPEARANCE CLEAR; URINE BACTERIA 272 /uL (0-1359); URINE BILIRUBIN NEGATIVE (NEGATIVE); URINE COLOR YELLOW; URINE GLUCOSE (UA) NEGATIVE (NEGATIVE); URINE KETONE TRACE (NEGATIVE); URINE LEUK ESTERASE 1+ (NEGATIVE); URINE NITRITE NEGATIVE (NEGATIVE); URINE PROTEIN TRACE (NEGATIVE); URINE RBC 5 /uL (0-23.9); URINE UROBILINOGEN 0.2 mg/dL (0.2-1.0); URINE WBC 51 /uL (0-25.8)
[2022-05-11] MEDS: THIAMINE HCL 100 MG TABLET (FP) PO SCH (21:37)
[2022-05-11] MEDS: MELATONIN 5 MG TABLETS PO SCH (21:37)
[2022-05-11] MEDS: OLANZapine 10 MG TABLET PO SCH (21:38)
[2022-05-12] MEDS: metFORMIN HCL 500 MG TABLET (FP) PO SCH (06:45)
[2022-05-12] MEDS: hydrOXYzine PAMOATE 25 MG CAPSULE (FP) PO SCH ×2 (06:45→10:08)
[2022-05-12] MEDS: INSULIN SLIDING SCALE (NOVOLOG) 1 VIAL SQ SCH ×2 (06:47→17:14)
[2022-05-12] MEDS: NICOTINE 7 MG/24 HOURS TOPICAL PATCH TD SCH (10:07)
[2022-05-12] MEDS: amLODIPine BESYLATE 10 MG TABLET (FP) PO SCH (10:08)
[2022-05-12] MEDS: PRENATAL VITAMINS W/ FOLIC ACID TABLET (FP) PO SCH (10:08)
[2022-05-12] MEDS: FLUoxetine HCL 20 MG CAPSULE PO SCH (10:08)
[2022-05-12] MEDS ORDERED: INSULIN (NOVOLOG) ASPART 100 UNITS/ML 10ML VIAL ONE (17:12)
[2022-05-12] MEDS: THIAMINE HCL 100 MG TABLET (FP) PO SCH (21:51)
[2022-05-12] MEDS: MELATONIN 5 MG TABLETS PO SCH (21:51)
[2022-05-12] MEDS: OLANZapine 10 MG TABLET PO SCH (21:51)
[2022-05-13] MEDS: metFORMIN HCL 500 MG TABLET (FP) PO SCH (06:50)
[2022-05-13] MEDS: INSULIN SLIDING SCALE (NOVOLOG) 1 VIAL SQ SCH ×2 (06:50→16:31)
[2022-05-13] MEDS ORDERED: INSULIN (NOVOLOG) ASPART 100 UNITS/ML 10ML VIAL ONE (06:51)
[2022-05-13] MEDS: FLUoxetine HCL 20 MG CAPSULE PO SCH (10:11)
[2022-05-13] MEDS: PRENATAL VITAMINS W/ FOLIC ACID TABLET (FP) PO SCH (10:11)
[2022-05-13] MEDS: NICOTINE 7 MG/24 HOURS TOPICAL PATCH TD SCH (10:11)
[2022-05-13] MEDS: amLODIPine BESYLATE 10 MG TABLET (FP) PO SCH (10:16)
[2022-05-13] MEDS: hydrOXYzine PAMOATE 25 MG CAPSULE (FP) PO PRN (21:20)
[2022-05-13] MEDS: OLANZapine 10 MG TABLET PO SCH (21:20)
[2022-05-13] MEDS: MELATONIN 5 MG TABLETS PO SCH (21:20)
[2022-05-13] MEDS: THIAMINE HCL 100 MG TABLET (FP) PO SCH (21:20)
[2022-05-14] MEDS: metFORMIN HCL 500 MG TABLET (FP) PO SCH (07:04)
[2022-05-14] MEDS ORDERED: INSULIN (NOVOLOG) ASPART 100 UNITS/ML 10ML VIAL ONE ×2 (08:34→17:46)
[2022-05-14] MEDS: INSULIN SLIDING SCALE (NOVOLOG) 1 VIAL SQ SCH ×2 (08:34→17:30)
[2022-05-14] MEDS: amLODIPine BESYLATE 10 MG TABLET (FP) PO SCH (10:15)
[2022-05-14] MEDS: FLUoxetine HCL 20 MG CAPSULE PO SCH (10:15)
[2022-05-14] MEDS: PRENATAL VITAMINS W/ FOLIC ACID TABLET (FP) PO SCH (10:15)
[2022-05-14] MEDS: NICOTINE 7 MG/24 HOURS TOPICAL PATCH TD SCH (10:16)
[2022-05-14] MEDS: OLANZapine 10 MG TABLET PO SCH (21:59)
[2022-05-14] MEDS: THIAMINE HCL 100 MG TABLET (FP) PO SCH (21:59)
[2022-05-14] MEDS: MELATONIN 5 MG TABLETS PO SCH (21:59)
[2022-05-15] MEDS: metFORMIN HCL 500 MG TABLET (FP) PO SCH (07:40)
[2022-05-15] MEDS: INSULIN SLIDING SCALE (NOVOLOG) 1 VIAL SQ SCH ×2 (09:01→16:48)
[2022-05-15] MEDS: amLODIPine BESYLATE 10 MG TABLET (FP) PO SCH (09:43)
[2022-05-15] MEDS: PRENATAL VITAMINS W/ FOLIC ACID TABLET (FP) PO SCH (09:43)
[2022-05-15] MEDS: FLUoxetine HCL 20 MG CAPSULE PO SCH (09:43)
[2022-05-15] MEDS: NICOTINE 7 MG/24 HOURS TOPICAL PATCH TD SCH (09:44)
[2022-05-15] MEDS: IBUPROFEN 400 MG TABLET (FP) PO PRN (09:45)
[2022-05-15] MEDS ORDERED: INSULIN (NOVOLOG) ASPART 100 UNITS/ML 10ML VIAL ONE (16:57)
[2022-05-15] MEDS: OLANZapine 10 MG TABLET PO SCH (21:29)
[2022-05-15] MEDS: MELATONIN 5 MG TABLETS PO SCH (21:29)
[2022-05-15] MEDS: THIAMINE HCL 100 MG TABLET (FP) PO SCH (21:30)
[2022-05-16] MEDS: metFORMIN HCL 500 MG TABLET (FP) PO SCH (07:04)
[2022-05-16] MEDS: INSULIN SLIDING SCALE (NOVOLOG) 1 VIAL SQ SCH ×2 (07:05→16:26)
[2022-05-16] MEDS: NICOTINE 7 MG/24 HOURS TOPICAL PATCH TD SCH (09:36)
[2022-05-16] MEDS: PRENATAL VITAMINS W/ FOLIC ACID TABLET (FP) PO SCH (09:37)
[2022-05-16] MEDS: FLUoxetine HCL 20 MG CAPSULE PO SCH (09:37)
[2022-05-16] MEDS: amLODIPine BESYLATE 10 MG TABLET (FP) PO SCH (09:37)
[2022-05-16] MEDS ORDERED: NICOTINE 7 MG/24 HOURS TOPICAL PATCH TD PRN (11:23)
[2022-05-16] MEDS ORDERED: INSULIN (NOVOLOG) ASPART 100 UNITS/ML 10ML VIAL ONE (16:25)
[2022-05-16] MEDS: OLANZapine 10 MG TABLET PO SCH (21:14)
[2022-05-16] MEDS: hydrOXYzine PAMOATE 25 MG CAPSULE (FP) PO PRN (21:14)
[2022-05-16] MEDS: MELATONIN 5 MG TABLETS PO SCH (21:14)
[2022-05-16] MEDS: THIAMINE HCL 100 MG TABLET (FP) PO SCH (21:14)
[2022-05-17] MEDS: metFORMIN HCL 500 MG TABLET (FP) PO SCH (06:47)
[2022-05-17] MEDS: INSULIN SLIDING SCALE (NOVOLOG) 1 VIAL SQ SCH ×2 (06:48→16:42)
[2022-05-17] MEDS: amLODIPine BESYLATE 10 MG TABLET (FP) PO SCH (09:49)
[2022-05-17] MEDS: FLUoxetine HCL 20 MG CAPSULE PO SCH (09:49)
[2022-05-17] MEDS: PRENATAL VITAMINS W/ FOLIC ACID TABLET (FP) PO SCH (09:49)
[2022-05-17] MEDS: THIAMINE HCL 100 MG TABLET (FP) PO SCH (21:20)
[2022-05-17] MEDS: OLANZapine 10 MG TABLET PO SCH (21:21)
[2022-05-17] MEDS: hydrOXYzine PAMOATE 25 MG CAPSULE (FP) PO PRN (21:21)
[2022-05-17] MEDS: MELATONIN 5 MG TABLETS PO SCH (21:21)
[2022-05-18] MEDS: metFORMIN HCL 500 MG TABLET (FP) PO SCH (06:57)
[2022-05-18] MEDS: INSULIN SLIDING SCALE (NOVOLOG) 1 VIAL SQ SCH ×2 (06:57→16:33)
[2022-05-18] MEDS: amLODIPine BESYLATE 10 MG TABLET (FP) PO SCH (09:55)
[2022-05-18] MEDS: PRENATAL VITAMINS W/ FOLIC ACID TABLET (FP) PO SCH (09:55)
[2022-05-18] MEDS: FLUoxetine HCL 20 MG CAPSULE PO SCH (09:55)
[2022-05-18] MEDS: COLLOIDAL OATMEAL 1 BAR EACH TP PRN (13:34)
[2022-05-18] MEDS ORDERED: INSULIN (NOVOLOG) ASPART 100 UNITS/ML 10ML VIAL ONE ×2 (16:33→21:42)
[2022-05-18] MEDS: MELATONIN 5 MG TABLETS PO SCH (21:34)
[2022-05-18] MEDS: OLANZapine 10 MG TABLET PO SCH (21:34)
[2022-05-18] MEDS: THIAMINE HCL 100 MG TABLET (FP) PO SCH (21:34)
[2022-05-19] MEDS ORDERED: INSULIN (NOVOLOG) ASPART 100 UNITS/ML 10ML VIAL ONE ×3 (06:33→23:38)
[2022-05-19] MEDS: INSULIN SLIDING SCALE (NOVOLOG) 1 VIAL SQ SCH ×2 (06:33→16:27)
[2022-05-19] MEDS: metFORMIN HCL 500 MG TABLET (FP) PO SCH (06:34)
[2022-05-19] MEDS: FLUoxetine HCL 20 MG CAPSULE PO SCH (09:48)
[2022-05-19] MEDS: amLODIPine BESYLATE 10 MG TABLET (FP) PO SCH (09:48)
[2022-05-19] MEDS: PRENATAL VITAMINS W/ FOLIC ACID TABLET (FP) PO SCH (09:49)
[2022-05-19] MEDS: hydrOXYzine PAMOATE 25 MG CAPSULE (FP) PO PRN (21:30)
[2022-05-19] MEDS: THIAMINE HCL 100 MG TABLET (FP) PO SCH (21:30)
[2022-05-19] MEDS: OLANZapine 10 MG TABLET PO SCH (21:30)
[2022-05-19] MEDS: MELATONIN 5 MG TABLETS PO SCH (21:30)
[2022-05-20] MEDS ORDERED: INSULIN (NOVOLOG) ASPART 100 UNITS/ML 10ML VIAL ONE ×2 (07:12→17:02)
[2022-05-20] MEDS: INSULIN SLIDING SCALE (NOVOLOG) 1 VIAL SQ SCH ×2 (07:14→17:15)
[2022-05-20] MEDS: metFORMIN HCL 500 MG TABLET (FP) PO SCH (07:15)
[2022-05-20] MEDS: FLUoxetine HCL 20 MG CAPSULE PO SCH (09:50)
[2022-05-20] MEDS: PRENATAL VITAMINS W/ FOLIC ACID TABLET (FP) PO SCH (09:50)
[2022-05-20] MEDS: amLODIPine BESYLATE 10 MG TABLET (FP) PO SCH (09:50)
[2022-05-20] MEDS: IBUPROFEN 400 MG TABLET (FP) PO PRN (12:40)
[2022-05-20] MEDS: COLLOIDAL OATMEAL 1 BAR EACH TP PRN (15:48)
[2022-05-20] MEDS: OLANZapine 10 MG TABLET PO SCH (21:38)
[2022-05-20] MEDS: THIAMINE HCL 100 MG TABLET (FP) PO SCH (21:38)
[2022-05-20] MEDS: hydrOXYzine PAMOATE 25 MG CAPSULE (FP) PO PRN (21:39)
[2022-05-20] MEDS: MELATONIN 5 MG TABLETS PO SCH (21:39)
[2022-05-21] MEDS: INSULIN SLIDING SCALE (NOVOLOG) 1 VIAL SQ SCH ×2 (06:47→17:16)
[2022-05-21] MEDS: metFORMIN HCL 500 MG TABLET (FP) PO SCH (06:47)
[2022-05-21] MEDS ORDERED: INSULIN (NOVOLOG) ASPART 100 UNITS/ML 10ML VIAL ONE ×3 (08:04→21:36)
[2022-05-21] MEDS: FLUoxetine HCL 20 MG CAPSULE PO SCH (09:37)
[2022-05-21] MEDS: amLODIPine BESYLATE 10 MG TABLET (FP) PO SCH (09:37)
[2022-05-21] MEDS: PRENATAL VITAMINS W/ FOLIC ACID TABLET (FP) PO SCH (09:37)
[2022-05-21] MEDS: OLANZapine 10 MG TABLET PO SCH (21:19)
[2022-05-21] MEDS: MELATONIN 5 MG TABLETS PO SCH (21:19)
[2022-05-21] MEDS: THIAMINE HCL 100 MG TABLET (FP) PO SCH (21:19)
[2022-05-21] MEDS: IBUPROFEN 400 MG TABLET (FP) PO PRN (22:04)
[2022-05-22] MEDS: metFORMIN HCL 500 MG TABLET (FP) PO SCH (06:43)
[2022-05-22] MEDS: INSULIN SLIDING SCALE (NOVOLOG) 1 VIAL SQ SCH ×2 (06:44→16:24)
[2022-05-22] MEDS ORDERED: INSULIN (NOVOLOG) ASPART 100 UNITS/ML 10ML VIAL ONE ×2 (06:46→16:23)
[2022-05-22] MEDS: FLUoxetine HCL 20 MG CAPSULE PO SCH (09:24)
[2022-05-22] MEDS: PRENATAL VITAMINS W/ FOLIC ACID TABLET (FP) PO SCH (09:25)
[2022-05-22] MEDS: amLODIPine BESYLATE 10 MG TABLET (FP) PO SCH (09:25)
[2022-05-22] MEDS: MELATONIN 5 MG TABLETS PO SCH (21:22)
[2022-05-22] MEDS: OLANZapine 10 MG TABLET PO SCH (21:22)
[2022-05-22] MEDS: THIAMINE HCL 100 MG TABLET (FP) PO SCH (21:22)
[2022-05-22] MEDS: hydrOXYzine PAMOATE 25 MG CAPSULE (FP) PO PRN (21:22)
[2022-05-22] MEDS: MAG HYDROX/AL HYDROX/SIMETH 30 ML UNIT-DOSE CUP PO PRN (21:23)
[2022-05-23] MEDS: metFORMIN HCL 500 MG TABLET (FP) PO SCH (06:32)
[2022-05-23] MEDS: INSULIN SLIDING SCALE (NOVOLOG) 1 VIAL SQ SCH ×2 (06:32→16:44)
[2022-05-23] MEDS ORDERED: INSULIN (NOVOLOG) ASPART 100 UNITS/ML 10ML VIAL ONE ×3 (07:04→21:49)
[2022-05-23] MEDS: amLODIPine BESYLATE 10 MG TABLET (FP) PO SCH (09:40)
[2022-05-23] MEDS: PRENATAL VITAMINS W/ FOLIC ACID TABLET (FP) PO SCH (09:40)
[2022-05-23] MEDS: FLUoxetine HCL 20 MG CAPSULE PO SCH (09:40)
[2022-05-23] MEDS: MAG HYDROX/AL HYDROX/SIMETH 30 ML UNIT-DOSE CUP PO PRN (18:55)
[2022-05-23] MEDS: THIAMINE HCL 100 MG TABLET (FP) PO SCH (21:35)
[2022-05-23] MEDS: MELATONIN 5 MG TABLETS PO SCH (21:35)
[2022-05-23] MEDS: OLANZapine 10 MG TABLET PO SCH (21:36)
[2022-05-24] MEDS: metFORMIN HCL 500 MG TABLET (FP) PO SCH (08:00)
[2022-05-24] MEDS: INSULIN SLIDING SCALE (NOVOLOG) 1 VIAL SQ SCH ×2 (08:01→17:12)
[2022-05-24] MEDS: FLUoxetine HCL 20 MG CAPSULE PO SCH (09:47)
[2022-05-24] MEDS: amLODIPine BESYLATE 10 MG TABLET (FP) PO SCH (09:47)
[2022-05-24] MEDS: PRENATAL VITAMINS W/ FOLIC ACID TABLET (FP) PO SCH (09:47)
[2022-05-24] MEDS: IBUPROFEN 400 MG TABLET (FP) PO PRN (11:40)
[2022-05-24] MEDS: GABAPENTIN 100 MG CAPSULE PO SCH ×2 (16:02→21:33)
[2022-05-24] MEDS ORDERED: INSULIN (NOVOLOG) ASPART 100 UNITS/ML 10ML VIAL ONE (17:09)
[2022-05-24] MEDS: hydrOXYzine PAMOATE 25 MG CAPSULE (FP) PO PRN (21:33)
[2022-05-24] MEDS: MELATONIN 5 MG TABLETS PO SCH (21:33)
[2022-05-24] MEDS: THIAMINE HCL 100 MG TABLET (FP) PO SCH (21:33)
[2022-05-24] MEDS: OLANZapine 10 MG TABLET PO SCH (21:33)
[2022-05-24] MEDS: MAG HYDROX/AL HYDROX/SIMETH 30 ML UNIT-DOSE CUP PO PRN (22:02)
[2022-05-25] MEDS ORDERED: INSULIN (NOVOLOG) ASPART 100 UNITS/ML 10ML VIAL ONE (03:50)
[2022-05-25] MEDS: GABAPENTIN 100 MG CAPSULE PO SCH ×3 (06:42→21:17)
[2022-05-25] MEDS: metFORMIN HCL 500 MG TABLET (FP) PO SCH (06:42)
[2022-05-25] MEDS: INSULIN SLIDING SCALE (NOVOLOG) 1 VIAL SQ SCH ×2 (06:42→16:55)
[2022-05-25] MEDS: PRENATAL VITAMINS W/ FOLIC ACID TABLET (FP) PO SCH (09:49)
[2022-05-25] MEDS: FLUoxetine HCL 20 MG CAPSULE PO SCH (09:49)
[2022-05-25] MEDS: amLODIPine BESYLATE 10 MG TABLET (FP) PO SCH (09:49)
[2022-05-25] MEDS: NICOTINE 10 MG CARTRIDGE (INHALER) IH PRN (09:51)
[2022-05-25] MEDS: MELATONIN 5 MG TABLETS PO SCH (21:17)
[2022-05-25] MEDS: hydrOXYzine PAMOATE 25 MG CAPSULE (FP) PO PRN (21:17)
[2022-05-25] MEDS: THIAMINE HCL 100 MG TABLET (FP) PO SCH (21:17)
[2022-05-25] MEDS: OLANZapine 10 MG TABLET PO SCH (21:17)
[2022-05-26] MEDS: GABAPENTIN 100 MG CAPSULE PO SCH ×3 (06:34→21:07)
[2022-05-26] MEDS: metFORMIN HCL 500 MG TABLET (FP) PO SCH (06:35)
[2022-05-26] MEDS: INSULIN SLIDING SCALE (NOVOLOG) 1 VIAL SQ SCH ×2 (06:36→16:26)
[2022-05-26] MEDS: amLODIPine BESYLATE 10 MG TABLET (FP) PO SCH (10:02)
[2022-05-26] MEDS: FLUoxetine HCL 20 MG CAPSULE PO SCH (10:03)
[2022-05-26] MEDS: PRENATAL VITAMINS W/ FOLIC ACID TABLET (FP) PO SCH (10:03)
[2022-05-26] MEDS ORDERED: INSULIN (NOVOLOG) ASPART 100 UNITS/ML 10ML VIAL ONE ×2 (16:22→22:03)
[2022-05-26] MEDS: MELATONIN 5 MG TABLETS PO SCH (21:07)
[2022-05-26] MEDS: OLANZapine 10 MG TABLET PO SCH (21:07)
[2022-05-26] MEDS: THIAMINE HCL 100 MG TABLET (FP) PO SCH (21:07)
[2022-05-27] MEDS: GABAPENTIN 100 MG CAPSULE PO SCH (06:40)
[2022-05-27] MEDS: metFORMIN HCL 500 MG TABLET (FP) PO SCH (06:40)
[2022-05-27] MEDS: INSULIN SLIDING SCALE (NOVOLOG) 1 VIAL SQ SCH ×2 (06:41→16:27)
[2022-05-27] MEDS ORDERED: INSULIN (NOVOLOG) ASPART 100 UNITS/ML 10ML VIAL ONE ×2 (06:41→16:24)
[2022-05-27] MEDS: amLODIPine BESYLATE 10 MG TABLET (FP) PO SCH (09:41)
[2022-05-27] MEDS: PRENATAL VITAMINS W/ FOLIC ACID TABLET (FP) PO SCH (09:42)
[2022-05-27] MEDS: FLUoxetine HCL 20 MG CAPSULE PO SCH (09:42)
[2022-05-27] MEDS: GABAPENTIN 300 MG CAPSULE PO SCH ×3 (12:00→21:20)
[2022-05-27] MEDS: MELATONIN 5 MG TABLETS PO SCH (21:20)
[2022-05-27] MEDS: THIAMINE HCL 100 MG TABLET (FP) PO SCH (21:20)
[2022-05-27] MEDS: OLANZapine 10 MG TABLET PO SCH (21:20)
[2022-05-27] MEDS: hydrOXYzine PAMOATE 25 MG CAPSULE (FP) PO PRN (21:20)
[2022-05-27] MEDS: MAG HYDROX/AL HYDROX/SIMETH 30 ML UNIT-DOSE CUP PO PRN (21:21)
[2022-05-28] MEDS: metFORMIN HCL 500 MG TABLET (FP) PO SCH (07:09)
[2022-05-28] MEDS: GABAPENTIN 300 MG CAPSULE PO SCH ×3 (07:09→21:46)
[2022-05-28] MEDS: INSULIN SLIDING SCALE (NOVOLOG) 1 VIAL SQ SCH ×2 (07:11→16:58)
[2022-05-28] MEDS ORDERED: INSULIN (NOVOLOG) ASPART 100 UNITS/ML 10ML VIAL ONE ×2 (07:17→17:32)
[2022-05-28] MEDS: amLODIPine BESYLATE 10 MG TABLET (FP) PO SCH (09:52)
[2022-05-28] MEDS: PRENATAL VITAMINS W/ FOLIC ACID TABLET (FP) PO SCH (09:53)
[2022-05-28] MEDS: FLUoxetine HCL 20 MG CAPSULE PO SCH (09:53)
[2022-05-28] MEDS: THIAMINE HCL 100 MG TABLET (FP) PO SCH (21:46)
[2022-05-28] MEDS: MAG HYDROX/AL HYDROX/SIMETH 30 ML UNIT-DOSE CUP PO PRN (21:46)
[2022-05-28] MEDS: OLANZapine 10 MG TABLET PO SCH (21:46)
[2022-05-28] MEDS: MELATONIN 5 MG TABLETS PO SCH (21:46)
[2022-05-28] MEDS: hydrOXYzine PAMOATE 25 MG CAPSULE (FP) PO PRN (21:46)
[2022-05-29] MEDS ORDERED: INSULIN (NOVOLOG) ASPART 100 UNITS/ML 10ML VIAL ONE ×3 (06:11→16:45)
[2022-05-29] MEDS: GABAPENTIN 300 MG CAPSULE PO SCH ×3 (06:12→21:15)
[2022-05-29] MEDS: metFORMIN HCL 500 MG TABLET (FP) PO SCH (06:12)
[2022-05-29] MEDS: INSULIN SLIDING SCALE (NOVOLOG) 1 VIAL SQ SCH ×2 (06:13→16:48)
[2022-05-29] MEDS: amLODIPine BESYLATE 10 MG TABLET (FP) PO SCH (10:03)
[2022-05-29] MEDS: PRENATAL VITAMINS W/ FOLIC ACID TABLET (FP) PO SCH (10:04)
[2022-05-29] MEDS: FLUoxetine HCL 20 MG CAPSULE PO SCH (10:04)
[2022-05-29] MEDS: hydrOXYzine PAMOATE 25 MG CAPSULE (FP) PO PRN (21:15)
[2022-05-29] MEDS: OLANZapine 10 MG TABLET PO SCH (21:15)
[2022-05-29] MEDS: MELATONIN 5 MG TABLETS PO SCH (21:15)
[2022-05-29] MEDS: THIAMINE HCL 100 MG TABLET (FP) PO SCH (21:15)
[2022-05-30] MEDS: metFORMIN HCL 500 MG TABLET (FP) PO SCH (06:34)
[2022-05-30] MEDS: GABAPENTIN 300 MG CAPSULE PO SCH ×3 (06:34→21:32)
[2022-05-30] MEDS: INSULIN SLIDING SCALE (NOVOLOG) 1 VIAL SQ SCH ×2 (06:34→16:35)
[2022-05-30] MEDS ORDERED: INSULIN (NOVOLOG) ASPART 100 UNITS/ML 10ML VIAL ONE ×2 (06:35→16:32)
[2022-05-30] MEDS: amLODIPine BESYLATE 10 MG TABLET (FP) PO SCH (09:11)
[2022-05-30] MEDS: FLUoxetine HCL 20 MG CAPSULE PO SCH (09:12)
[2022-05-30] MEDS: PRENATAL VITAMINS W/ FOLIC ACID TABLET (FP) PO SCH (09:12)
[2022-05-30] MEDS: METHOCARBAMOL 500 MG TABLET PO PRN ×2 (15:13→21:32)
[2022-05-30] MEDS: MELATONIN 5 MG TABLETS PO SCH (21:32)
[2022-05-30] MEDS: hydrOXYzine PAMOATE 25 MG CAPSULE (FP) PO PRN (21:32)
[2022-05-30] MEDS: THIAMINE HCL 100 MG TABLET (FP) PO SCH (21:32)
[2022-05-30] MEDS: OLANZapine 10 MG TABLET PO SCH (21:32)
[2022-05-31] MEDS: INSULIN SLIDING SCALE (NOVOLOG) 1 VIAL SQ SCH ×2 (06:41→16:53)
[2022-05-31] MEDS ORDERED: INSULIN (NOVOLOG) ASPART 100 UNITS/ML 10ML VIAL ONE (06:41)
[2022-05-31] MEDS: metFORMIN HCL 500 MG TABLET (FP) PO SCH (06:42)
[2022-05-31] MEDS: GABAPENTIN 300 MG CAPSULE PO SCH ×3 (06:42→21:34)
[2022-05-31] MEDS: FLUoxetine HCL 20 MG CAPSULE PO SCH (10:14)
[2022-05-31] MEDS: PRENATAL VITAMINS W/ FOLIC ACID TABLET (FP) PO SCH (10:14)
[2022-05-31] MEDS: amLODIPine BESYLATE 10 MG TABLET (FP) PO SCH (10:16)
[2022-05-31] MEDS: METHOCARBAMOL 500 MG TABLET PO PRN ×2 (10:16→21:35)
[2022-05-31] MEDS ORDERED: INSULIN SLIDING SCALE (NOVOLOG) 1 VIAL SQ ONE (16:49)
[2022-05-31] MEDS: OLANZapine 10 MG TABLET PO SCH (21:34)
[2022-05-31] MEDS: THIAMINE HCL 100 MG TABLET (FP) PO SCH (21:34)
[2022-05-31] MEDS: MELATONIN 5 MG TABLETS PO SCH (21:34)
[2022-06-01] MEDS: GABAPENTIN 300 MG CAPSULE PO SCH ×3 (06:32→21:30)
[2022-06-01] MEDS: metFORMIN HCL 500 MG TABLET (FP) PO SCH (06:32)
[2022-06-01] MEDS: INSULIN SLIDING SCALE (NOVOLOG) 1 VIAL SQ SCH ×2 (07:04→16:34)
[2022-06-01] MEDS: PRENATAL VITAMINS W/ FOLIC ACID TABLET (FP) PO SCH (09:03)
[2022-06-01] MEDS: amLODIPine BESYLATE 10 MG TABLET (FP) PO SCH (09:03)
[2022-06-01] MEDS: FLUoxetine HCL 20 MG CAPSULE PO SCH (09:03)
[2022-06-01] MEDS: METHOCARBAMOL 500 MG TABLET PO PRN (13:09)
[2022-06-01] MEDS ORDERED: INSULIN (NOVOLOG) ASPART 100 UNITS/ML 10ML VIAL ONE ×2 (16:33→23:30)
[2022-06-01] MEDS: hydrOXYzine PAMOATE 25 MG CAPSULE (FP) PO PRN (21:30)
[2022-06-01] MEDS: MELATONIN 5 MG TABLETS PO SCH (21:30)
[2022-06-01] MEDS: THIAMINE HCL 100 MG TABLET (FP) PO SCH (21:30)
[2022-06-01] MEDS: OLANZapine 10 MG TABLET PO SCH (21:30)
[2022-06-02] MEDS ORDERED: INSULIN (NOVOLOG) ASPART 100 UNITS/ML 10ML VIAL ONE ×3 (06:29→21:38)
[2022-06-02] MEDS: metFORMIN HCL 500 MG TABLET (FP) PO SCH (06:29)
[2022-06-02] MEDS: INSULIN SLIDING SCALE (NOVOLOG) 1 VIAL SQ SCH ×2 (06:29→16:30)
[2022-06-02] MEDS: GABAPENTIN 300 MG CAPSULE PO SCH ×3 (06:30→21:34)
[2022-06-02] MEDS: COLLOIDAL OATMEAL 1 BAR EACH TP PRN (06:48)
[2022-06-02] MEDS: amLODIPine BESYLATE 10 MG TABLET (FP) PO SCH (09:55)
[2022-06-02] MEDS: PRENATAL VITAMINS W/ FOLIC ACID TABLET (FP) PO SCH (09:55)
[2022-06-02] MEDS: NICOTINE 10 MG CARTRIDGE (INHALER) IH PRN (09:55)
[2022-06-02] MEDS: FLUoxetine HCL 20 MG CAPSULE PO SCH (09:55)
[2022-06-02] MEDS: MELATONIN 5 MG TABLETS PO SCH (21:33)
[2022-06-02] MEDS: THIAMINE HCL 100 MG TABLET (FP) PO SCH (21:33)
[2022-06-02] MEDS: OLANZapine 10 MG TABLET PO SCH (21:34)
[2022-06-03] MEDS: INSULIN SLIDING SCALE (NOVOLOG) 1 VIAL SQ SCH ×2 (06:33→16:40)
[2022-06-03] MEDS: GABAPENTIN 300 MG CAPSULE PO SCH ×3 (06:33→21:33)
[2022-06-03] MEDS: metFORMIN HCL 500 MG TABLET (FP) PO SCH (06:33)
[2022-06-03] MEDS ORDERED: INSULIN (NOVOLOG) ASPART 100 UNITS/ML 10ML VIAL ONE ×2 (06:41→16:46)
[2022-06-03] MEDS: amLODIPine BESYLATE 10 MG TABLET (FP) PO SCH (10:01)
[2022-06-03] MEDS: PRENATAL VITAMINS W/ FOLIC ACID TABLET (FP) PO SCH (10:01)
[2022-06-03] MEDS: FLUoxetine HCL 20 MG CAPSULE PO SCH (10:02)
[2022-06-03] MEDS: MAG HYDROX/AL HYDROX/SIMETH 30 ML UNIT-DOSE CUP PO PRN (12:53)
[2022-06-03] MEDS: OLANZapine 10 MG TABLET PO SCH (21:32)
[2022-06-03] MEDS: THIAMINE HCL 100 MG TABLET (FP) PO SCH (21:33)
[2022-06-03] MEDS: hydrOXYzine PAMOATE 25 MG CAPSULE (FP) PO PRN (21:33)
[2022-06-03] MEDS: METHOCARBAMOL 500 MG TABLET PO PRN (21:33)
[2022-06-03] MEDS: MELATONIN 5 MG TABLETS PO SCH (21:33)
[2022-06-04] MEDS: INSULIN SLIDING SCALE (NOVOLOG) 1 VIAL SQ SCH ×2 (06:46→16:40)
[2022-06-04] MEDS ORDERED: INSULIN (NOVOLOG) ASPART 100 UNITS/ML 10ML VIAL ONE ×2 (06:47→16:39)
[2022-06-04] MEDS: GABAPENTIN 300 MG CAPSULE PO SCH ×3 (06:47→21:21)
[2022-06-04] MEDS: metFORMIN HCL 500 MG TABLET (FP) PO SCH (06:47)
[2022-06-04] MEDS: FLUoxetine HCL 20 MG CAPSULE PO SCH (09:56)
[2022-06-04] MEDS: PRENATAL VITAMINS W/ FOLIC ACID TABLET (FP) PO SCH (09:56)
[2022-06-04] MEDS: amLODIPine BESYLATE 10 MG TABLET (FP) PO SCH (09:56)
[2022-06-04] MEDS: IBUPROFEN 400 MG TABLET (FP) PO PRN (09:57)
[2022-06-04] MEDS: THIAMINE HCL 100 MG TABLET (FP) PO SCH (21:20)
[2022-06-04] MEDS: MELATONIN 5 MG TABLETS PO SCH (21:20)
[2022-06-04] MEDS: OLANZapine 10 MG TABLET PO SCH (21:20)
[2022-06-04] MEDS: hydrOXYzine PAMOATE 25 MG CAPSULE (FP) PO PRN (21:20)
[2022-06-05] MEDS: GABAPENTIN 300 MG CAPSULE PO SCH ×3 (06:13→21:20)
[2022-06-05] MEDS: metFORMIN HCL 500 MG TABLET (FP) PO SCH (06:13)
[2022-06-05] MEDS: INSULIN SLIDING SCALE (NOVOLOG) 1 VIAL SQ SCH ×2 (06:14→16:26)
[2022-06-05] MEDS ORDERED: INSULIN (NOVOLOG) ASPART 100 UNITS/ML 10ML VIAL ONE ×3 (06:15→21:43)
[2022-06-05] MEDS: amLODIPine BESYLATE 10 MG TABLET (FP) PO SCH (09:52)
[2022-06-05] MEDS: FLUoxetine HCL 20 MG CAPSULE PO SCH (09:52)
[2022-06-05] MEDS: PRENATAL VITAMINS W/ FOLIC ACID TABLET (FP) PO SCH (09:53)
[2022-06-05] MEDS: THIAMINE HCL 100 MG TABLET (FP) PO SCH (21:20)
[2022-06-05] MEDS: OLANZapine 10 MG TABLET PO SCH (21:20)
[2022-06-05] MEDS: MELATONIN 5 MG TABLETS PO SCH (21:20)
[2022-06-06] MEDS: metFORMIN HCL 500 MG TABLET (FP) PO SCH (06:32)
[2022-06-06] MEDS: GABAPENTIN 300 MG CAPSULE PO SCH ×3 (06:32→21:22)
[2022-06-06] MEDS: INSULIN SLIDING SCALE (NOVOLOG) 1 VIAL SQ SCH ×2 (07:40→17:14)
[2022-06-06] MEDS ORDERED: INSULIN (NOVOLOG) ASPART 100 UNITS/ML 10ML VIAL ONE ×2 (07:46→17:14)
[2022-06-06] MEDS: FLUoxetine HCL 20 MG CAPSULE PO SCH (09:53)
[2022-06-06] MEDS: amLODIPine BESYLATE 10 MG TABLET (FP) PO SCH (09:53)
[2022-06-06] MEDS: PRENATAL VITAMINS W/ FOLIC ACID TABLET (FP) PO SCH (09:53)
[2022-06-06] MEDS: hydrOXYzine PAMOATE 25 MG CAPSULE (FP) PO PRN (21:22)
[2022-06-06] MEDS: MELATONIN 5 MG TABLETS PO SCH (21:22)
[2022-06-06] MEDS: THIAMINE HCL 100 MG TABLET (FP) PO SCH (21:23)
[2022-06-06] MEDS: METHOCARBAMOL 500 MG TABLET PO PRN (21:23)
[2022-06-06] MEDS: OLANZapine 10 MG TABLET PO SCH (21:23)
[2022-06-07] MEDS: INSULIN SLIDING SCALE (NOVOLOG) 1 VIAL SQ SCH (06:28)
[2022-06-07] MEDS: GABAPENTIN 300 MG CAPSULE PO SCH (06:29)
[2022-06-07] MEDS: metFORMIN HCL 500 MG TABLET (FP) PO SCH (06:29)
[2022-06-07] MEDS ORDERED: INSULIN (NOVOLOG) ASPART 100 UNITS/ML 10ML VIAL ONE (06:30)
[2022-06-07 06:40] VITALS: RESP 16; TEMP 97.8
[2022-06-07] MEDS: PRENATAL VITAMINS W/ FOLIC ACID TABLET (FP) PO SCH (09:06)
[2022-06-07] MEDS: FLUoxetine HCL 20 MG CAPSULE PO SCH (09:06)
[2022-06-07] MEDS: amLODIPine BESYLATE 10 MG TABLET (FP) PO SCH (09:06)
[2022-06-07 09:10] VITALS: BP 114/74; PULSE 111
== END 2022-06-07 09:08 | disposition home or self-care (01) | DRG 772 ==
LOC: YASAS 14:36 → Y3E 14:37
PROVIDERS: ADMIT Allergy & Immunology; ATTEND Psychiatry & Neurology Pain Medicine
PROC: HZ42ZZZ Group Counseling for Substance Abuse Treatment, Cognitive-Behavioral (ICD-10-PCS; principal; 2022-05-10)
DX: F10.20 Alcohol dependence, uncomplicated (principal); F14.20 Cocaine dependence, uncomplicated; F12.10 Cannabis abuse, uncomplicated; F17.210 Nicotine dependence, cigarettes, uncomplicated; F19.24 Other psychoactive substance dependence with psychoactive substance-induced mood disorder; I10 Essential (primary) hypertension; E11.9 Type 2 diabetes mellitus without complications; Z79.84 Long term (current) use of oral hypoglycemic drugs; M54.50 Low back pain, unspecified; G89.29 Other chronic pain; Z96.643 Presence of artificial hip joint, bilateral; Z99.89 Dependence on other enabling machines and devices
CPT/HCPCS: 36415; 81003; 82962; 86803

== ENCOUNTER 2023-09-11 11:33 | Inpatient (IN) | payer OTHER ==
[2023-09-11 12:22] VITALS: BMI 25.1
[2023-09-11] MEDS ORDERED: DICYCLOMINE HCL 10 MG CAPSULE PO PRN (16:48)
[2023-09-11] MEDS ORDERED: BISMUTH SUBSALICYLATE 524 MG/30 ML PO PRN (16:48)
[2023-09-11] MEDS ORDERED: NALOXONE HCL (KLOXXADO) 8 MG SPRAY NS PRN (16:48)
[2023-09-11] MEDS ORDERED: METHOCARBAMOL 500 MG TABLET PO PRN (16:48)
[2023-09-11] MEDS ORDERED: MAG HYDROX/AL HYDROX/SIMETH 30 ML UNIT-DOSE CUP PO PRN (16:48)
[2023-09-11] MEDS ORDERED: hydrOXYzine PAMOATE 25 MG CAPSULE (FP) PO PRN (16:48)
[2023-09-11] MEDS ORDERED: POLYETHYLENE GLYCOL (HEALTHYLAX) 3350 17 GM PACKET PO PRN (16:48)
[2023-09-11] MEDS ORDERED: BENZONATATE 200 MG CAPSULE PO PRN (16:48)
[2023-09-11] MEDS ORDERED: NALOXONE HCL 0.4 MG/ML VIAL IM PRN (16:48)
[2023-09-11] MEDS ORDERED: IBUPROFEN 400 MG TABLET (FP) PO PRN (16:48)
[2023-09-11] MEDS ORDERED: BENZOCAINE/MENTHOL (CHLORASEPTIC ) LOZENGE MM PRN (16:48)
[2023-09-11] MEDS ORDERED: guaiFENesin 600 MG TABLET.ER (FP) PO PRN (16:48)
[2023-09-11] MEDS ORDERED: ACETAMINOPHEN 325 MG TABLET (FP) PO PRN (16:48)
[2023-09-11] MEDS ORDERED: ONDANSETRON *ODT* 4 MG TABLET SL PRN (16:48)
[2023-09-11] MEDS ORDERED: IBUPROFEN 600 MG TABLET (FP) PO PRN (16:48)
[2023-09-11] MEDS ORDERED: LOPERAMIDE HCL 2 MG CAPSULE PO PRN (16:48)
[2023-09-11] MEDS ORDERED: MAGNESIUM HYDROX 2400MG/30ML ORAL SUSPENSION 30 ML CUP PO PRN (16:48)
[2023-09-11] MEDS: amLODIPine BESYLATE 10 MG TABLET (FP) PO ONE (18:45)
[2023-09-11] MEDS: THIAMINE HCL 100 MG TABLET (FP) PO SCH (22:49)
[2023-09-11] MEDS: MELATONIN 5 MG TABLETS PO SCH (22:49)
[2023-09-12] MEDS: metFORMIN HCL 500 MG TABLET (FP) PO SCH (07:35)
[2023-09-12] MEDS: PRENATAL VITAMINS W/ FOLIC ACID TABLET (FP) PO SCH (10:12)
[2023-09-12] MEDS: amLODIPine BESYLATE 10 MG TABLET (FP) PO SCH (10:12)
[2023-09-12] MEDS: FLUoxetine HCL 20 MG CAPSULE PO SCH (11:16)
[2023-09-12 11:50] LABS: HEMATOCRIT 42.7 % (35.4-49); HEMOGLOBIN 14.7 GM/dL (11.7-16.9); MCH 29.5 pg (25.7-33.7); MCHC 34.4 g/dl (32.0-35.9); MEAN CELL VOLUME 85.5 fl (80-96); MEAN PLT VOLUME 7.7 fl (7.5-11.1); PLATELET COUNT 276 10^3/uL (134-434); RBC 4.99 M/mm3 (4.00-5.60); RDW 13.8 % (11.9-15.9); WHITE BLOOD COUNT 4.1 K/mm3 (4.0-10.0)
[2023-09-12 12:55] LABS: HIV INTERPRETATION NEGATIVE (NEGATIVE)
[2023-09-12 12:56] LABS: CHLORIDE 104 mmol/L (98-107); POTASSIUM 4.3 mmol/L (3.5-5.1); SODIUM 139 mmol/L (136-145)
[2023-09-12 12:58] LABS: CALCIUM 8.9 mg/dL (8.5-10.1)
[2023-09-12 12:59] LABS: ALBUMIN 3.5 g/dl (3.4-5.0); ANION GAP 5 mmol/L (4-13); BLOOD UREA NITROGEN 14.1 mg/dL (7-18); CO2 29 mmol/L (21-32); GLUCOSE,RANDOM 206 mg/dL (74-106)
[2023-09-12 13:02] LABS: CREATININE 0.8 mg/dL (0.55-1.3); SGOT/AST 12 U/L (15-37); SGPT/ALT 26 U/L (13-61)
[2023-09-12 13:04] LABS: BILIRUBIN,TOTAL 0.5 mg/dL (0.2-1); TOT PROT 6.9 g/dl (6.4-8.2)
[2023-09-12 13:05] LABS: ALK PHOS 116 U/L (45-117)
[2023-09-12] MEDS: OLANZapine 10 MG TABLET PO SCH (22:46)
[2023-09-13 08:55] VITALS: PULSE 96
[2023-09-13 13:42] VITALS: BP 158/90; RESP 16; TEMP 97.7
== END 2023-09-13 14:00 | disposition other institution (70) | DRG 774 ==
LOC: YASAS 11:33 → Y6N 16:48
PROVIDERS: ADMIT Allergy & Immunology; ATTEND Surgery
PROC: HZ2ZZZZ Detoxification Services for Substance Abuse Treatment (ICD-10-PCS; principal; 2023-09-11)
DX: F10.230 Alcohol dependence with withdrawal, uncomplicated (principal); F14.20 Cocaine dependence, uncomplicated; F17.210 Nicotine dependence, cigarettes, uncomplicated; F25.9 Schizoaffective disorder, unspecified; F19.282 Other psychoactive substance dependence with psychoactive substance-induced sleep disorder; F19.24 Other psychoactive substance dependence with psychoactive substance-induced mood disorder; I10 Essential (primary) hypertension; E11.9 Type 2 diabetes mellitus without complications; Z79.84 Long term (current) use of oral hypoglycemic drugs; M17.0 Bilateral primary osteoarthritis of knee; Z96.643 Presence of artificial hip joint, bilateral; Z99.89 Dependence on other enabling machines and devices; Z59.00 Homelessness unspecified
CPT/HCPCS: 36415; 80053; 80307; 82962; 85027; 86780; 87389; 87635

== ENCOUNTER 2023-09-13 14:10 | Inpatient (IN) | payer OTHER ==
[2023-09-13] MEDS ORDERED: NICOTINE POLACRILEX 4 MG LOZENGE BC PRN (15:55)
[2023-09-13] MEDS ORDERED: MAGNESIUM HYDROX 2400MG/30ML ORAL SUSPENSION 30 ML CUP PO PRN (15:55)
[2023-09-13] MEDS ORDERED: guaiFENesin 600 MG TABLET.ER (FP) PO PRN (15:55)
[2023-09-13] MEDS ORDERED: NICOTINE POLACRILEX 4 MG GUM BUC PRN (15:55)
[2023-09-13] MEDS ORDERED: AMMONIUM LACTATE 12% LOTION 225 GM BOTTLE TP PRN (15:55)
[2023-09-13] MEDS ORDERED: NALOXONE HCL (KLOXXADO) 8 MG SPRAY NS PRN (15:55)
[2023-09-13] MEDS ORDERED: BACLOFEN 10 MG TABLET (FP) PO PRN (15:55)
[2023-09-13] MEDS ORDERED: BENZONATATE 200 MG CAPSULE PO PRN (15:55)
[2023-09-13] MEDS ORDERED: NICOTINE 14 MG/24 HOURS TOPICAL PATCH TD PRN (15:55)
[2023-09-13] MEDS ORDERED: ACETAMINOPHEN 325 MG TABLET (FP) PO PRN (15:55)
[2023-09-13] MEDS ORDERED: NALOXONE HCL 0.4 MG/ML VIAL IVPUSH PRN (15:55)
[2023-09-13] MEDS ORDERED: BENZOCAINE/MENTHOL (CHLORASEPTIC ) LOZENGE MM PRN (15:55)
[2023-09-13] MEDS ORDERED: LOPERAMIDE HCL 2 MG CAPSULE PO PRN (15:55)
[2023-09-13] MEDS ORDERED: POLYETHYLENE GLYCOL (HEALTHYLAX) 3350 17 GM PACKET PO PRN (15:55)
[2023-09-13] MEDS: MELATONIN 5 MG TABLETS PO SCH (21:17)
[2023-09-13] MEDS: GABAPENTIN 300 MG CAPSULE PO SCH (21:17)
[2023-09-13] MEDS: THIAMINE HCL 100 MG TABLET (FP) PO SCH (21:17)
[2023-09-14] MEDS: metFORMIN HCL 500 MG TABLET (FP) PO SCH (06:15)
[2023-09-14] MEDS: hydrOXYzine PAMOATE 25 MG CAPSULE (FP) PO PRN (07:03)
[2023-09-14] MEDS: PRENATAL VITAMINS W/ FOLIC ACID TABLET (FP) PO SCH (09:42)
[2023-09-14] MEDS: amLODIPine BESYLATE 10 MG TABLET (FP) PO SCH (09:43)
[2023-09-14] MEDS: FLUoxetine HCL 20 MG CAPSULE PO SCH (09:43)
[2023-09-14] MEDS: OLANZapine 5 MG TABLET PO SCH (10:38)
[2023-09-15] MEDS: LACTULOSE 20 GM/30 ML UDC (FOR ORAL USE ONLY) PO SCH (14:27)
[2023-09-15] MEDS ORDERED: IBUPROFEN 400 MG TABLET (FP) PO PRN (15:58)
[2023-09-15] MEDS: OLANZapine 10 MG TABLET PO SCH (21:23)
[2023-09-15] MEDS: BACLOFEN 10 MG TABLET (FP) PO SCH (21:24)
[2023-09-19] MEDS: INSULIN ASPART SLIDING SCALE (NOVOLOG) 1 VIAL SQ SCH (16:44)
[2023-09-20] MEDS ORDERED: INSULIN (NOVOLOG) ASPART 100 UNITS/ML 10ML VIAL ONE (06:52)
[2023-09-21] MEDS ORDERED: INSULIN (NOVOLOG) ASPART 100 UNITS/ML 10ML VIAL ONE (07:06)
[2023-09-21 11:31] LABS: INR 0.91 (0.83-1.09); PROTHROMBIN TIME (PATIENT) 10.6 SEC (9.7-13.0)
[2023-09-23] MEDS ORDERED: INSULIN (NOVOLOG) ASPART 100 UNITS/ML 10ML VIAL ONE (06:43)
[2023-09-24] MEDS ORDERED: INSULIN (NOVOLOG) ASPART 100 UNITS/ML 10ML VIAL ONE (07:20)
[2023-09-24] MEDS: IBUPROFEN 600 MG TABLET (FP) PO PRN (09:58)
[2023-09-24] MEDS: IBUPROFEN 400 MG TABLET (FP) PO PRN (13:41)
[2023-09-24] MEDS: MAG HYDROX/AL HYDROX/SIMETH 30 ML UNIT-DOSE CUP PO PRN (15:24)
[2023-09-25] MEDS ORDERED: INSULIN (NOVOLOG) ASPART 100 UNITS/ML 10ML VIAL ONE ×2 (06:45→16:58)
[2023-09-26] MEDS ORDERED: INSULIN (NOVOLOG) ASPART 100 UNITS/ML 10ML VIAL ONE (17:06)
[2023-09-27] MEDS ORDERED: INSULIN (NOVOLOG) ASPART 100 UNITS/ML 10ML VIAL ONE ×2 (08:03→16:41)
[2023-09-27] MEDS: INSULIN ASPART SLIDING SCALE (NOVOLOG) 1 VIAL SQ SCH (08:11)
[2023-09-28] MEDS: GABAPENTIN 300 MG CAPSULE PO SCH (14:09)
[2023-09-28] MEDS: BACLOFEN 10 MG TABLET (FP) PO SCH (14:10)
[2023-09-29] MEDS ORDERED: INSULIN (NOVOLOG) ASPART 100 UNITS/ML 10ML VIAL ONE ×2 (06:48→16:22)
[2023-09-30] MEDS ORDERED: INSULIN (NOVOLOG) ASPART 100 UNITS/ML 10ML VIAL ONE (06:11)
[2023-10-02] MEDS ORDERED: INSULIN (NOVOLOG) ASPART 100 UNITS/ML 10ML VIAL ONE (08:01)
[2023-10-02] MEDS ORDERED: BISMUTH SUBSALICYLATE 524 MG/30 ML PO PRN (16:35)
[2023-10-02] MEDS ORDERED: BENZONATATE 200 MG CAPSULE PO PRN (16:35)
[2023-10-02] MEDS ORDERED: DICYCLOMINE HCL 10 MG CAPSULE PO PRN (16:35)
[2023-10-02] MEDS ORDERED: ACETAMINOPHEN 325 MG TABLET (FP) PO PRN (16:35)
[2023-10-02] MEDS ORDERED: P-EPHED 60MG/TRIPROLIDI 2.5MG TABLET PO PRN (16:35)
[2023-10-02] MEDS ORDERED: guaiFENesin 600 MG TABLET.ER (FP) PO PRN (16:35)
[2023-10-03] MEDS ORDERED: INSULIN (NOVOLOG) ASPART 100 UNITS/ML 10ML VIAL ONE ×2 (06:39→16:37)
[2023-10-03 06:41] VITALS: TEMP 97.8
[2023-10-04 07:00] VITALS: BP 137/76; PULSE 88; RESP 18
[2023-10-04] MEDS ORDERED: INSULIN (NOVOLOG) ASPART 100 UNITS/ML 10ML VIAL ONE (07:32)
== END 2023-10-04 11:15 | disposition home or self-care (01) | DRG 772 ==
LOC: YASAS 14:10 → Y5N 14:12
PROVIDERS: ADMIT Allergy & Immunology; ATTEND Psychiatry & Neurology Pain Medicine
PROC: HZ42ZZZ Group Counseling for Substance Abuse Treatment, Cognitive-Behavioral (ICD-10-PCS; principal; 2023-09-13)
DX: F10.20 Alcohol dependence, uncomplicated (principal); F14.20 Cocaine dependence, uncomplicated; F17.210 Nicotine dependence, cigarettes, uncomplicated; F19.24 Other psychoactive substance dependence with psychoactive substance-induced mood disorder; F25.9 Schizoaffective disorder, unspecified; E72.20 Disorder of urea cycle metabolism, unspecified; I10 Essential (primary) hypertension; E78.5 Hyperlipidemia, unspecified; E11.9 Type 2 diabetes mellitus without complications; Z79.84 Long term (current) use of oral hypoglycemic drugs; M54.50 Low back pain, unspecified; G89.29 Other chronic pain; Z99.89 Dependence on other enabling machines and devices
CPT/HCPCS: 0241U-QW; 36415; 82140; 82962; 85610; 86803; J0475